=== PATIENT | female | born 1960 | race Caucasian/White ===

== ENCOUNTER 2016-11-05 13:56 | Emergency (ER) | payer OTHER ==
[2016-11-05 14:54] VITALS: BP 113/72
--- NOTE | 2016-11-05 15:02 | UC ---
Throat Pain/Nasal Guy HPI - HPI Summary HPI Summary: pt c/o sudden onset of sore throat that began this morning. Pt reports that she had the "stomach bug" two weeks ago, now c/o of URI like symptoms X 1 week and now woke this morning with c/o sore throat. She states that her throat has been "feeling funny" for at least 1 week. Pt was newly diagnosed with COPD, is a current everyday smoker and began taking Advair 3 months ago. - History of Current Complaint Chief Complaint: UCRespiratory Stated Complaint: SORE THROAT,SINUS Time Seen by Provider: 11/05/16 14:31 Hx Obtained From: Patient Hx Last Menstrual Period: 2012 ?: No Onset/Duration: Sudden Onset Severity: Moderate Cough: Productive Associated Signs & Symptoms: Positive: Dysphagia, Wheezing, Sinus Discomfort Related History: Smoking - Allergies/Home Medications Allergies/Adverse Reactions: Allergies Allergy/AdvReac Type Severity Reaction Status Date / Time No Known Allergies Allergy Verified 11/05/16 14:33 Home Medications: Home Medications Atorvastatin* [Lipitor*] 40 mg PO DAILY 11/05/16 [History Confirmed 11/05/16] Esomeprazole(NF) [NexIUM(NF)] 40 mg PO DAILY 11/05/16 [History Confirmed ] Fluticasone-Salmeterol 250-50* [Advair Diskus 250-50*] 1 puff INH BID 11/05/16 [ History Confirmed 11/05/16] Levothyroxine TAB* [Synthroid TAB*] 50 mcg PO 11/05/16 [History] Oxycodone TAB(NF) [Oxycodone HCl 10 MG] 10 mg PO Q6H PRN 11/05/16 [History Confirmed 11/05/16] Ranitidine HCl [Zantac 75] 75 mg PO BEDTIME 11/05/16 [History Confirmed 11/05/16 ] PMH/Surg Hx/FS Hx/Imm Hx Previously Healthy: Yes Endocrine History Of: Reports: Thyroid Disease Cardiovascular History Of: Reports: Hypertension Respiratory History Of: Reports: COPD Cancer History Of: Denies: Breast Cancer - Surgical History Surgical History: Yes Surgery Procedure, Year, and Place: Left fibula fracture repair, 2009, [facility]. Finger tendon releases - Family History Known Family History: Positive: Respiratory Disease - mom asthma - Social History Lives: With Family Alcohol Use: Rare Substance Use Type: None, Prescribed Smoking Status (MU): Current Every Day Smoker Type: Cigarettes Amount Used/How Often: 1/2 PPD Length of Time of Smoking/Using Tobacco: 37 +Years Have You Smoked in the Last Year: Yes Household Exposure Type: Cigarettes - Immunization History Most Recent Influenza Vaccination: FALL 2015 Review of Systems Constitutional: Chills Skin: Negative Eyes: Negative ENT: Sore Throat Respiratory: Cough Cardiovascular: Negative Gastrointestinal: Negative Genitourinary: Negative Motor: Negative Neurovascular: Negative Musculoskeletal: Negative Neurological: Headache Psychological: Negative All Other Systems Reviewed And Are Negative: Yes Physical Exam Triage Information Reviewed: Yes Appearance: Ill-Appearing Vital Signs: Initial Vital Signs Temp 97.6 F 11/05/16 14:39 Resp 18 11/05/16 14:39 BP 113/72 11/05/16 14:39 Pulse Ox 100 11/05/16 14:39 Vital Signs Reviewed: Yes ENT Exam: Other ENT: Positive: Nasal congestion, Other: - maxillary sinus tenderness, cerumen in bilateral ears, with patches soft palate Neck exam: Normal Neck: Positive: Supple Respiratory Exam: Other Respiratory: Positive: Wheezing Cardiovascular Exam: Normal Musculoskeletal Exam: Normal Neurological Exam: Normal Psychological Exam: Normal Skin Exam: Other - oral: soft palate white patch Throat Pain/Nasal Course/Dx - Course Course Of Treatment: pt had negative rapid strep test. Pt reports she hasnot been rinsing her mouth after using her advair. I told her that good oral hygien is needed with use of Advair and to follow up with her PCP or return to clinic. - Differential Dx/Diagnosis Differential Diagnosis/HQI/PQRI: Pharyngitis, URI Provider Diagnoses: URI. Oral candidiasis Discharge - Discharge Plan Condition: Stable Disposition: HOME Prescriptions: Fluconazole 100 MG TAB* [Diflucan 100 MG TAB*] 100 mg PO DAILY #7 tab Patient Education Materials: Oral Candidiasis (ED), Upper Respiratory Infection (ED) Referrals: Alison Lopez PA [Physician Senior Structural Engineer] - Additional Instructions: Please follow up with your PCP as soon as possible. If your symptoms change, worsen or do not improve please seek care from your PCP, return to clinic or go to the closest ED.
== END 2016-11-05 15:19 | disposition home or self-care (01) ==
LOC: UCCORT 13:56
DX: J06.9 Acute upper respiratory infection, unspecified (principal); B37.0 Candidal stomatitis; E07.9 Disorder of thyroid, unspecified; I10 Essential (primary) hypertension; J44.9 Chronic obstructive pulmonary disease, unspecified; F17.210 Nicotine dependence, cigarettes, uncomplicated
CPT/HCPCS: 87651; 99212; G0463

== ENCOUNTER 2017-07-16 13:09 | Emergency (ER) | payer OTHER ==
[2017-07-16 14:13] VITALS: BP 105/70
--- NOTE | 2017-07-16 14:34 | UC ---
Knee Pain HPI - HPI Summary HPI Summary: Pt c/o gradual onset of right knee pain. Denies injury or trauma. Pt reports pain began 4 days after cleaning her house. Pt is under DR. Alvarenga for pain management for back pain. - History of Current Complaint Chief Complaint: UCLowerExtremity Stated Complaint: RIGHT KNEE COMPLAINT Time Seen by Provider: 07/16/17 14:22 Hx Obtained From: Patient Hx Last Menstrual Period: 2012 ?: No Onset/Duration: Gradual Onset, Lasting Days Severity Initially: Mild Severity Currently: Moderate Character: Dull, Aching Aggravating Factor(s): Movement, Weight Bearing, Prolonged Standing, Stairs Alleviating Factor(s): Rest, Position Associated Signs And Symptoms: Positive: Negative Able to Bear Weight: Yes - minimal - Risk Factors Gout Risk Factor: Age ^ 41, Obesity - Allergies/Home Medications Allergies/Adverse Reactions: Allergies Allergy/AdvReac Type Severity Reaction Status Date / Time Gabapentin AdvReac Intermediate Altered Verified 07/16/17 14:14 Mental Status Tramadol AdvReac Intermediate See Comment Verified 07/16/17 14:14 PMH/Surg Hx/FS Hx/Imm Hx Previously Healthy: Yes - Surgical History Surgical History: Yes Surgery Procedure, Year, and Place: Left fibula fracture repair, 2009, [facility]. R 3rd finger and L thumb trigger finger release - Family History Known Family History: Positive: Respiratory Disease - mom asthma - Social History Occupation: Employed Full-time Lives: With Family Alcohol Use: Occasionally Substance Use Type: None, Prescribed Substance Use Comment - Amount & Last Used: takes oxycodone for chronic back Smoking Status (MU): Heavy Every Day Tobacco Smoker Type: Cigarettes Amount Used/How Often: 1/2 PPD Length of Time of Smoking/Using Tobacco: 37 +Years Have You Smoked in the Last Year: Yes Household Exposure Type: Cigarettes - Immunization History Most Recent Influenza Vaccination: FALL 2015 Review of Systems Constitutional: Negative Skin: Negative Eyes: Negative ENT: Negative Respiratory: Negative Cardiovascular: Negative Gastrointestinal: Negative Genitourinary: Negative Motor: Decreased ROM - right knee secondary to pain Neurovascular: Negative Musculoskeletal: Arthralgia - right knee, Myalgia - right knee Neurological: Negative Psychological: Negative Is Patient Immunocompromised?: No All Other Systems Reviewed And Are Negative: Yes Physical Exam Triage Information Reviewed: Yes Appearance: Well-Appearing Vital Signs: Initial Vital Signs Temp 97.8 F 07/16/17 14:02 Pulse 78 07/16/17 14:02 Resp 16 07/16/17 14:02 BP 105/70 07/16/17 14:02 Pulse Ox 99 07/16/17 14:02 Vital Signs Reviewed: Yes Eye Exam: Normal ENT Exam: Normal Neck exam: Normal Respiratory Exam: Normal Musculoskeletal: Positive: No Edema, ROM Limited @ - right knee secondary to pain, Other: - medial aspectright knee at joint Neurological Exam: Normal Psychological Exam: Normal Skin Exam: Normal Knee Pain Course/Dx - Differential Dx/Diagnosis Differential Diagnosis/HQI/PQRI: Bursitis, Sprain, Strain Provider Diagnoses: right knee bursitis. right knee over use Discharge - Discharge Plan Condition: Stable Disposition: HOME Patient Education Materials: Knee Pain (ED), RICE Therapy (ED) Referrals: Gilson Coelho MD [Medical Doctor] - Xin Ridley MD [Primary Care Provider] - If Needed
== END 2017-07-16 14:49 | disposition home or self-care (01) ==
LOC: UCCORT 13:09
DX: M70.51 Other bursitis of knee, right knee (principal); M70.861 Other soft tissue disorders related to use, overuse and pressure, right lower leg; Y93.9 Activity, unspecified; Z88.5 Allergy status to narcotic agent; F17.210 Nicotine dependence, cigarettes, uncomplicated
CPT/HCPCS: 99212; G0463

== ENCOUNTER 2017-10-30 07:42 | Day surgery (SDC) | payer OTHER ==
[~2017-10-30 07:42] MED LIST: Buffered Lidocaine 0.9% SYRIN* 5 ML/SYR SYRINGE INTRADERM ONE; Dexamethasone IV* 4 MG/ML 1 ML (4 MG) IV SLOW PU ONE; Levalbuterol 0.63MG/3ML NEB* UNIT OF USE INH ONE
[2017-10-30] MEDS ORDERED: ceFAZolin 2 GM in 100 MLS NS (*) BAG IVPB ONE (08:19)
[2017-10-30] MEDS ORDERED: Levalbuterol 0.63MG/3ML NEB* UNIT OF USE INH ONE (08:19)
[2017-10-30] MEDS ORDERED: Dexamethasone IV* 4 MG/ML 1 ML (4 MG) ONE (08:19)
[2017-10-30] MEDS ORDERED: Famotidine IV* 10 MG/ML 2 ML (20 mg) IV SLOW PU ONE (08:40)
[2017-10-30] MEDS ORDERED: Famotidine IV* 10 MG/ML 2 ML (20 mg) ONE (08:53)
[2017-10-30] MEDS ORDERED: Lidocaine 1% MPF wEPI 200,000* 30 ML SDV ONE (09:24)
[2017-10-30] MEDS ORDERED: Bupivacaine 0.25% SDV* 30 ML ONE (09:24)
[2017-10-30] MEDS ORDERED: Propofol* 10 MG/ML 20 ML BTL IV PUSH ONE (09:33)
[2017-10-30] MEDS ORDERED: Midazolam* 1 MG/ML 5 ML VIAL (5 MG) ONE (09:33)
[2017-10-30] MEDS ORDERED: Ketorolac INJ* 30 MG/ML 1 ML VIAL ONE (09:33)
[2017-10-30] MEDS ORDERED: fentaNYL* 50 MCG/ML 2 ML VIAL (100 MCG VIAL) ONE (09:33)
[2017-10-30] MEDS ORDERED: Ondansetron INJ* 2 MG/ML VIAL ONE (09:33)
[2017-10-30] MEDS ORDERED: Chloroprocaine 2%* 20 ML VIAL ONE (09:37)
[2017-10-30] MEDS ORDERED: Naloxone* 0.4 MG/ML 1 ML VIAL IV PRN (10:06)
[2017-10-30] MEDS ORDERED: oxyCODONE/Acetamin 5/325 MG* TAB PO PRN (10:06)
[2017-10-30] MEDS ORDERED: DiMENhydriNATE IV* 50 MG/ML VIAL IV PUSH PRN (10:06)
[2017-10-30] MEDS ORDERED: Ondansetron INJ* 2 MG/ML VIAL IV PRN (10:06)
[2017-10-30] MEDS ORDERED: fentaNYL* 50 MCG/ML 2 ML VIAL (100 MCG VIAL) IV PRN (10:06)
[2017-10-30 11:34] VITALS: BP 127/72
--- NOTE | 2017-10-31 20:20 | OP ---
OPERATIVE REPORT: DATE OF OPERATION: 10/30/17. DATE OF : 62 SURGEON: Felicaino Aguilera MD. RUSSIAN HISTORY PROFESSOR: GREG Alvarenga Operating Systems Programmer was needed for the entirety of the case with positioning, retraction and was utilized throu ghout all portions of the case. ANESTHESIOLOGIST: Dr. Mari. ANESTHESIA: Spinal. PRE-OP DIAGNOSIS: Right knee medial meniscus tear with mild osteoarthritis. POST-OP DIAGNOSES: Right knee medial and lateral meniscus tears and chondrosis of the patellofemoral and medial compartment. OPERATIVE PROCEDURE: Right knee arthroscopy with chondroplasty of the medial femoral condyle and pat rosa as well as partial medial and partial lateral meniscectomy. COMPLICATIONS: None. ESTIMATED BLOOD LOSS: Minimal. INDICATIONS: Arely Gaviria is a 57-year-old female who sustained an injury several months ago to her knee. She has failed conservative management. She was diagnosed with an acute medial meniscu s tear. She failed injections as well as physical therapy. She has persistent pain with daily sympt oms of catching and locking. Risks and benefits of surgery were discussed at length to include but n ot limited to bleeding, infection, damage to nerves, vessels, surrounding structures, would nonhealin g, persistent pain, need for further surgery, scarring, stiffness, incomplete relief of symptoms, ris k of anesthesia, risk of arthritis, worsening symptoms. DESCRIPTION OF PROCEDURE: The patient was greeted in the preoperative area by the attending surgeon. Correct extremity was marked and consent confirmed. The patient was brought back to the operating suite, where she was placed in the supine position on the operating table. She then sat up and under went a spinal anesthesia after which she was then appropriately positioned on the bed, lateral post w as positioned. Nonsterile tourniquet was placed high on the proximal thigh. T he right leg was then prepped and draped in the usual sterile fashion beginning with chlorhexidine soap, scrub, and alcoho l wipe, and a final prep with ChloraPrep. After appropriate surgical pause indicating side, site, procedure, and administration of antibiotics, the knee was intra-articularly injected with 1% lidocaine with epi. The anterolateral portals were made sharply with #11 blade. The scope was introduced into the joint and the joint was examined. The scope was brought into the patellofemoral compartment which had evidence of grade 2 changes to the p atella with unstable flaps. The trochlea had areas of grade 2 and 3 changes. The medial and lateral gutters were intact. The scope was brought into the notch. The ACL and PCL were intact. The medial compartment was examined. There were grade 2 changes to the medial femoral condyle with unstable fla ps. The tibial plateau had grade 2 changes. The medial meniscus had an unstable radial split tear w ith a parrot-beak flap associated with this, which was then debrided back using biters and yris al l the way to the level of the root and laterally. The shaver was also used to debride this back. Sha sunil was also used to do a chondroplasty in the medial femoral condyle. Once the partial meniscectomy was completed, attention was directed to the lateral compartment. The lateral compartment had grade 0 to 1 changes. The lateral meniscus had unstable fraying at the root as well as at the body. The shaver was used to debride this back using the biters and yris. Once the partial meniscectomies w ere complete, the knee was placed in extension and a small chondroplasty of the patella was done usin g the shaver to remove any unstable flaps. The joint was thoroughly lavaged and I removed the loose debris. The wounds were copiously irrigated with sterile saline. The portals were closed with 3-0 nylon. The knee intra-articularly injected with 0.25% Marcaine plain. Sterile dressings were applie d as well as the Cryo/Cuff. The patient was awoken from anesthesia, transferred to the PACU in stabl e condition. POSTOPERATIVE PLAN: She will be weightbearing as tolerated. She will start range of motion. She wi ll be on crutches for 3 to 5 days. DVT prophylaxis considered, but deferred due to no previous perso nal or family history. I will see the patient back in 10 to 14 days. [id number]/[facility] #: [id number]
== END 2017-10-30 11:50 | disposition home or self-care (01) ==
LOC: OREAST 07:42
PROVIDERS: ATTEND Orthopaedic Surgery
DX: S83.241A Other tear of medial meniscus, current injury, right knee, initial encounter (principal); S83.281A Other tear of lateral meniscus, current injury, right knee, initial encounter; M93.961 Osteochondropathy, unspecified, right lower leg; X58.XXXA Exposure to other specified factors, initial encounter; Y92.9 Unspecified place or not applicable; F17.210 Nicotine dependence, cigarettes, uncomplicated; I10 Essential (primary) hypertension; J44.9 Chronic obstructive pulmonary disease, unspecified; E03.9 Hypothyroidism, unspecified; K21.9 Gastro-esophageal reflux disease without esophagitis
CPT/HCPCS: J1100; J1885; J2001; J2250; J2400; J2405; J2704; J3010; J7614

== ENCOUNTER 2018-02-09 09:26 | Day surgery (SDC) | payer OTHER ==
--- NOTE | 2018-02-07 21:28 | HP ---
PREOPERATIVE HISTORY AND PHYSICAL: DATE OF ADMISSION/SURGERY: 02/09/18 DATE OF OFFICE VISIT/ENCOUNTER: 02/07/18 ATTENDING SURGEON: Sherry Duque MD * (DICTATED BY GREG KINGSLEY) PROCEDURE: Left wrist open reduction and internal fixation. CHIEF COMPLAINT: Left wrist fracture. HISTORY OF PRESENT ILLNESS: This is a 57-year-old female, who sustained injury to her left wrist on 02/05/18. She was in [place] at that time and was gathering wood. She was trying to break a piece of wood with one of her feet when she slipped and fell on an outstretched left hand. She was seen at the emergency room in [place] where x-rays showed a comminuted distal radius intraarticular fracture. There was no reduction performed. The patient was placed in a posterior splint and referred to Dr. Duque for further evaluation and treatment considerations. She is reporting significant pain, but she denies any numbness or tingling. She denies other injury. This is her nondominant hand. The patient is seen in the pain management clinic by Dr. Alvarenga for chronic back pain and is on oxycodone HCl 10 mg regularly. PAST MEDICAL HISTORY: 1. Hypertension. 2. High cholesterol. 3. Arthritis. 4. Diverticulitis. 5. GERD. 6. Hypothyroid. 7. Depression and anxiety. PAST SURGICAL HISTORY: 1. Surgery for a left leg fracture approximately 6 years ago. 2. Left thumb surgery. 3. Right middle finger surgery. 4. Uterine ablation. 5. Right knee arthroscopy. CURRENT MEDICATIONS: 1. Amlodipine besylate 5 mg daily. 2. Atorvastatin calcium 40 mg daily. 3. Clonidine HCl 0.1 mg twice a day. 4. Esomeprazole magnesium 40 mg daily. 5. Fluticasone propionate 50 mcg/ACT 1 spray to each nostril daily. 6. Ketorolac tromethamine 10 mg daily. 7. Lisinopril 40 mg daily. 8. Levothyroxine sodium. 9. Magnesium with vitamin D. 10. Meloxicam 15 mg daily. 11. Multivitamin. 12. Oxycodone HCl 10 mg q.4 hours p.r.n. 13. Paroxetine HCl 20 mg daily. 14. Pravastatin sodium 40 mg daily. 15. Acid floor inspector maximum strength 150 mg daily. 16. Yuvafem 10 mcg. ALLERGIES: TRAMADOL and GABAPENTIN. FAMILY MEDICAL HISTORY: Heart disease, hypertension, lung cancer, cardiac disease, asthma. 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 She is a current smoker. She smokes approximately half-a-pack to a pack-a-day and has done so for the past 30 years. She denies recreational drug use. She does drink alcohol on regular occasion. REVIEW OF SYSTEMS: General: Negative for fevers, chills, night sweats, unexplained weight loss/gain. No known anesthesia problems. HEENT: Negative for headache, lightheadedness, syncopal episodes, visual changes. Integumentary : Negative for abrasions, lesions, or open wounds. Cardiothoracic: Negative for hypertension, chest pain, palpitations, edema. Respiratory: Negative for shortness of breath with exertion, chronic cough, wheezing. GI: Negative for nausea, vomiting, diarrhea, constipation, GERD. : Negative for nocturia, urinary frequency, urgency, history of UTIs, or kidney problems. Musculoskeletal: Positive for current complaint. Positive for chronic back pain. Neurological: Negative for paresthesias, numbness, history of seizure, or stroke. Positive for anxiety/depression. Endocrine: Negative for diabetes. Positive for hypothyroid issues. Hematologic: Negative for easy bruising, anemia, bleeding disorders, history of DVT. Infectious Disease: Negative for history of MRSA, hepatitis C, HIV. PHYSICAL EXAMINATION GENERAL: Well-developed, well-nourished 57-year-old female in no acute distress. VITAL SIGNS: Height 5 feet 6-1/4 inches, weight 185 pounds. Pulse rate 76, blood pressure 128/76. HEENT: Normocephalic, atraumatic. Pupils are equal, round, and reactive to light and accommodation. Extraocular movements are intact. Throat is clear. NECK: Supple. No palpable lymph nodes. PULMONARY: Lungs are clear to auscultation bilaterally. No wheezes, rales, or rhonchi. CARDIOVASCULAR: Regular rate and rhythm. S1, S2. No murmurs, rubs, or gallops. No edema. ABDOMEN: Positive bowel sounds. Soft, nontender. NEUROLOGICAL: Alert and oriented x3. Cranial nerves II through XII are intact. Sensation is intact to light touch. MUSCULOSKELETAL: On exam of her left upper extremity, she has swelling present at the dorsum of her hand and down into her fingers. She had 2 rings on her ring finger that were cut off in the office. There is obvious deformity of the distal radius and tenderness to palpation there. Neurovascular function is intact. The patient does have active motion of her fingers, but limited secondary to swelling. SKIN: Intact. IMAGING STUDIES: X-rays AP, lateral and oblique of the left wrist show a comminuted intraarticular fracture of the left distal radius. IMPRESSION: Left distal radius fracture. PLAN: The patient is scheduled to undergo a left wrist open reduction and internal fixation with Dr. Duque on 02/09/18. She will return to the office 10 days postop for followup and suture removal. The patient was prescribed Percocet for postoperative pain management. She will be responsible for contacting her pain management physician to inform him that she will be filling this prescription, after which pain management will be returned to Dr. Alvarenga. GREG KINGSLEY [id number]/[facility] #: [id number] BAO
[~2018-02-09 09:26] MED LIST changes: +Bupivacaine 0.5% SDV PF* 30ML VIAL ONE; -Levalbuterol 0.63MG/3ML NEB* UNIT OF USE INH ONE; +Ondansetron INJ* 2 MG/ML VIAL IV ONE; +Sodium Citrate/Citric Acid* 15 ML UDC PO ONE
[2018-02-09] MEDS ORDERED: ceFAZolin 2 GM PREMIX (*) 2 GM/50 ML BAG IVPB ONE (10:02)
[2018-02-09] MEDS ORDERED: Sodium Citrate/Citric Acid* 15 ML UDC ONE (10:02)
[2018-02-09] MEDS ORDERED: Dexamethasone IV* 4 MG/ML 1 ML (4 MG) ONE (10:02)
[2018-02-09] MEDS ORDERED: Ondansetron 40 MG VIAL* 2 MG/ML 20 ML VIAL ONE (10:02)
[2018-02-09] MEDS ORDERED: Propofol* 10 MG/ML 20 ML BTL IV PUSH ONE ×3 (10:10→11:56)
[2018-02-09] MEDS ORDERED: Midazolam* 1 MG/ML 2 ML VIAL (2 MG) ONE (10:10)
[2018-02-09] MEDS ORDERED: fentaNYL* 50 MCG/ML 2 ML VIAL (100 MCG VIAL) ONE ×2 (10:10→11:44)
[2018-02-09] MEDS ORDERED: Lidocaine 2% MPF* 2 ML VIAL ONE (10:10)
[2018-02-09] MEDS ORDERED: Acetaminophen TAB* 325 MG PO PRN (10:45)
[2018-02-09] MEDS ORDERED: oxyCODONE TAB* 5 MG TAB PO PRN (10:45)
[2018-02-09] MEDS ORDERED: Levalbuterol 0.63MG/3ML NEB* UNIT OF USE INH PRN (10:45)
[2018-02-09] MEDS ORDERED: HYDROmorphone INJ* 1 MG/ML CARPUJECT SYRINGE IV PRN (10:45)
[2018-02-09] MEDS ORDERED: Naloxone* 0.4 MG/ML 1 ML VIAL IV PRN (10:45)
[2018-02-09] MEDS ORDERED: PROCHLORPERAZINE INJ 5 MG/ML 2 ML VIAL IV PRN (10:45)
[2018-02-09] MEDS ORDERED: fentaNYL* 50 MCG/ML 2 ML VIAL (100 MCG VIAL) IV PRN (10:45)
[2018-02-09] MEDS ORDERED: oxyCODONE/Acetamin 5/325 MG* TAB PO PRN (10:45)
[2018-02-09] MEDS ORDERED: Ketorolac INJ* 30 MG/ML 1 ML VIAL ONE (11:27)
[2018-02-09] MEDS ORDERED: HYDROmorphone INJ* 1 MG/ML CARPUJECT SYRINGE ONE (11:31)
[2018-02-09] MEDS ORDERED: Esmolol* 10 MG/ML 10 ML (100 mg) ONE (11:56)
[2018-02-09] MEDS ORDERED: Acetaminophen IV 1GM/100ML * 100 ML ONE (12:18)
[2018-02-09] MEDS ORDERED: oxyCODONE ORAL.SOLN* 5 MG/5 ML UDC ONE (12:46)
[2018-02-09 13:13] VITALS: BP 127/81
--- NOTE | 2018-02-09 14:32 | RAD ---
INDICATION: ORIF traumatic radial fracture left wrist COMPARISON: February 05, 2018 FINDINGS: 42 seconds of fluoroscopy were provided for the orthopedics department. Fluoroscopic spot imaging of the left wrist were obtained for operative control and show ORIF of the distal radial fracture. The fracture fragments are in satisfactory position . CPT II Codes: G9500 (fluoro time doc)
--- NOTE | 2018-02-09 15:17 | OP ---
CC: Sherry Duque MD OPERATIVE REPORT: ADDENDUM: The yard assistant, Nena Nguyễn, was present through the entirety of the case and her assistance was essential for safe completion of the case for retraction of the neurovascular structures. [id number]/[facility] #: [id number] MTDD
--- NOTE | 2018-02-10 03:01 | OP ---
CC: Dr. Duque OPERATIVE REPORT: DATE OF OPERATION: 02/09/18 DATE OF : 62 SURGEON: Sherry Duque MD HEATING ELEMENT WINDER: GREG Alvarenga ANESTHESIA: General. PRE-OP DIAGNOSIS: Comminuted intraarticular fracture of the left distal radius. POST-OP DIAGNOSIS: Comminuted intraarticular fracture of the left distal radius. OPERATIVE PROCEDURE: Open reduction internal fixation of the left distal radius. ESTIMATED BLOOD LOSS: 0. TOURNIQUET TIME: 30 minutes. INDICATIONS: Arely is a 57-year-old woman who fell and injured her left wrist. She was seen at a hospital in [place]. The fracture was not reduced. She presents now for ORIF of the left dista l radius. DESCRIPTION OF PROCEDURE: The patient was brought to the operating room and was given a general anes thetic and placed in the supine position on the operating table with a tourniquet around her left upp er arm. Skin of her left upper extremity was prepped and draped in the usual sterile fashion. The h and and forearm were exsanguinated and the tourniquet elevated to 250 mmHg. A longitudinal incision was made on the volar radial aspect of the wrist and we dissected sharply through the subcutaneous ti ssue down to the FCR tendon. The superficial and deep portion of the FCR tendon sheath was incised l ongitudinally and then the FPL muscle was retracted ulnarly. The pronator quadratus was incised and subperiosteally dissected off of the distal radius. With traction, manipulation of the fracture frag ments were realigned. There were several intraarticular fracture fragments. These were secured with a Synthes distal radius variable angle plate with 3 separate fragments secured with distal screws in the intraarticular segment. Three proximal screws were placed in the shaft of the radius. The posit ion of the hardware and fracture fragment was checked on the C-arm in the AP and lateral views and fo und to be satisfactory. Wound was irrigated and the pronator quadratus was repaired over the plate. The FCR tendon sheath was repaired with 2-0 Vicryl suture and the skin edges were reapproximated wit h 4-0 nylon suture. The wound was dressed with Xeroform, 4x4, Webril and a volar splint. The patien t tolerated the procedure well and was brought to the recovery room in good condition. [id number]/[facility] #: [id number]
== END 2018-02-09 13:20 | disposition home or self-care (01) ==
LOC: OREAST 09:26
PROVIDERS: ATTEND Orthopaedic Surgery
DX: S52.572A Other intraarticular fracture of lower end of left radius, initial encounter for closed fracture (principal); I10 Essential (primary) hypertension; E78.00 Pure hypercholesterolemia, unspecified; K21.9 Gastro-esophageal reflux disease without esophagitis; E03.9 Hypothyroidism, unspecified; F17.210 Nicotine dependence, cigarettes, uncomplicated; Z88.8 Allergy status to other drugs, medicaments and biological substances; X58.XXXA Exposure to other specified factors, initial encounter
CPT/HCPCS: 76000; A9270-GY; C1713; C1776; J0690; J1100; J1170; J1885; J2250; J2405; J2704; J3010

== ENCOUNTER 2018-10-23 13:41 | Emergency (ER) | payer OTHER ==
--- OUTSIDE RECORDS SUMMARY | 2018-10-23 15:01 | XMS REPORT | Continuity of Care Document ---
:1960 External Reference #:[id number] Author Name Jaime Alvarenga DO MPH Address [address] [place] [address], [address] [place] [address] Care Team Providers Name Role Phone Xin Ridley M.D. Care Team Information Caregivers Homecare Unavailable Xin Ridley M.D. Primary Care Physician Unavailable Payers Date Identification Numbers Payment Provider Subscriber Policy Number: [id number] [facility] Arely Gaviria PayID: [id number] 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 Working Cigarette Use Current Cigarette Smoker 1 Pack Daily ETOH Use Occasionally consumes beer Tobacco Use Start: Unknown Patient is a current smoker, smokes every day Smoking Status Reviewed: 10/02/18 Patient is a current smoker, smokes every day Allergies, Adverse Reactions, Alerts Date Description Reaction Status Severity Comments 05/24/2016 Tramadol Active 05/24/2016 Gabapentin Confusion Active 05/24/2016 Bupropion suicidal thoughts Active 05/24/2016 Nortriptyline nightmares Active Medications Medication Date Status Form Strength Qnty SIG Indications Ordering Provider Cyclobenzaprine 10/04/ Active Tablets 10mg 30tab si by MIN Alvarenga 2016 s mouth Jaime, daily DO, MPH Oxycodone HCL 07/18/ Active Tablets 10mg 180ta si-2 Kevin Alvarenga bs by mouth Jaime, every 6 DO, MPH to 8 hours as directed chronic pain patient Meloxicam / Active Tablets 15mg si by Unknown 0000 mouth every day as needed Clonidine HCL / Active Tablets 0.1mg 1 by Unknown 0000 mouth twice daily Aspirin Adult Low / Active Tablets DR 81mg 1 by Unknown Strength 0000 mouth daily Womens 50+ Multi / Active Tablets 1 by Unknown Vitamin & Mineral 0000 mouth Formula daily Paroxetine HCL / Active Tablets 20mg 1 by Unknown 0000 mouth daily Amlodipine / Active Tablets 5mg 1 by Unknown Besylate 0000 mouth daily Fluticasone / Active Suspension 50mcg/Act 1 spray Unknown Propionate 0000 each nostril daily Atorvastatin / Active Tablets 40mg Qpm Unknown Calcium 0000 Nexium / Active Capsules DR 40mg si by Unknown 0000 mouth twice a day as directed Ranitidine 150 / Active Tablets 150mg Unknown Maximum Strength 0000 Morphine Sulfate 05/24/ Hx Tablets ER 15mg 60tab si by ANNE-MARIE Alvarenga 2016 - s mouth Jaime, 07/18/ every 12 DO, MPH 2016 hours as directed chronic pain patient Oxycodone HCL 05/24/ Hx Tablets 10mg 90tab si by Lyle 2016 - s mouth Jaime, 07/18/ every 8 DO, MPH 2016 hours as directed chronic pain patient ` / Hx Tablets 40mg 1 by Unknown 0000 - mouth 2017 Pravastatin / Hx Tablets 20mg 1 by Unknown Sodium 0000 - mouth 2017 Omeprazole / Hx Capsules DR 40mg 1 by Unknown 0000 - mouth 2017 Synthroid / Hx Tablets 25mcg daily Unknown 0000 - 2017 Advair Diskus / Hx Aerosol 250-50mcg 1 puffs Unknown 0000 - /Dose twice a 2018 Levothyroxine / Hx Tablets 25mcg 1 by Unknown Sodium 0000 - mouth 09/12/ every day 2018 Immunizations Description No Information Available Vital Signs Date Vital Result Comment 10/02/2018 11:42am BP Systolic 128 mmHg BP Diastolic 72 mmHg Heart Rate 70 /min Respiratory Rate 10 /min Height 66 inches 5'6" Weight 188.00 lb Pain Level 5 Pain at this time. Pain Level With Medicine 4 on average with meds Pain Level Without Medicine 10 10/ without meds BMI (Body Mass Index) 30.3 kg/m2 09/04/2018 10:42am BP Systolic 122 mmHg BP Diastolic 74 mmHg Heart Rate 78 /min Respiratory Rate 20 /min Height 66 inches 5'6" Weight 184.00 lb Pain Level 7 Pain at this time. Pain Level With Medicine 6 on average with meds Pain Level Without Medicine 10 06/06 without meds BMI (Body Mass Index) 29.7 kg/m2 08/06/2018 10:21am BP Systolic 134 mmHg BP Diastolic 88 mmHg Heart Rate 78 /min Respiratory Rate 20 /min Height 66 inches 5'6" Weight 180.00 lb Pain Level 7 Pain at this time. Pain Level With Medicine 7 on average with meds Pain Level Without Medicine 10 06/06 without meds BMI (Body Mass Index) 29.0 kg/m2 07/10/2018 10:19am BP Systolic 132 mmHg BP Diastolic 80 mmHg Heart Rate 78 /min Respiratory Rate 20 /min Height 66 inches 5'6" Weight 180.00 lb Pain Level 7 Pain at this time. Pain Level With Medicine 6 on average with meds Pain Level Without Medicine 10 06/06 without meds BMI (Body Mass Index) 29.0 kg/m2 06/12/2018 11:23am BP Systolic 126 mmHg BP Diastolic 80 mmHg Heart Rate 84 /min Respiratory Rate 20 /min Height 66 inches 5'6" Weight 179.00 lb Pain Level 6 Pain at this time. Pain Level With Medicine 5 on average with meds Pain Level Without Medicine 06/06 without meds Pain Level After Procedure 4 BP Systolic Recheck 130 mmHg Pulse: 88 BP Diastolic Recheck 80 mmHg Pulse: 88 BMI (Body Mass Index) 28.9 kg/m2 05/08/2018 11:37am BP Systolic 126 mmHg BP Diastolic 86 mmHg Heart Rate 84 /min Respiratory Rate 20 /min Height 66 inches 5'6" Weight 180.00 lb Pain Level 5 Pain at this time. Pain Level With Medicine 4 on average with meds Pain Level Without Medicine 10 06/06 without meds Pain Level After Procedure 4 BP Systolic Recheck 120 mmHg Pulse:80 BP Diastolic Recheck 82 mmHg Pulse:80 BMI (Body Mass Index) 29.0 kg/m2 04/10/2018 11:38am BP Systolic 148 mmHg BP Diastolic 88 mmHg Heart Rate 92 /min Respiratory Rate 20 /min Height 66 inches 5'6" Weight 182.00 lb Pain Level 9 Pain at this time. Pain Level With Medicine 7 on average with meds Pain Level Without Medicine 10 06/06 without meds BMI (Body Mass Index) 29.4 kg/m2 03/13/2018 10:35am BP Systolic 136 mmHg BP Diastolic 82 mmHg Heart Rate 88 /min Respiratory Rate 20 /min Height 66 inches 5'6" Weight 182.00 lb Pain Level 7 Pain at this time. Pain Level With Medicine 7 on average with meds Pain Level Without Medicine 10 06/06 without meds BMI (Body Mass Index) 29.4 kg/m2 02/12/2018 11:18am BP Systolic 132 mmHg BP Diastolic 84 mmHg Heart Rate 80 /min Respiratory Rate 20 /min Height 66 inches 5'6" Weight 184.00 lb Pain Level 8 Pain at this time. Pain Level With Medicine 7 on average with meds Pain Level Without Medicine 10 06/06 without meds BMI (Body Mass Index) 29.7 kg/m2 01/15/2018 11:43am BP Systolic 128 mmHg BP Diastolic 76 mmHg Heart Rate 74 /min Respiratory Rate 20 /min Height 66 inches 5'6" Weight 184.00 lb Pain Level 6 Pain at this time. Pain Level With Medicine 6 on average with meds Pain Level Without Medicine 06/06 without meds BMI (Body Mass Index) 29.7 kg/m2 12/12/2017 10:59am BP Systolic 122 mmHg BP Diastolic 76 mmHg Heart Rate 74 /min Respiratory Rate 20 /min Height 66 inches 5'6" Weight 191.00 lb Pain Level 6 Pain at this time. Pain Level With Medicine 5 on average with meds Pain Level Without Medicine 06/06 without meds BMI (Body Mass Index) 30.8 kg/m2 11/14/2017 11:35am BP Systolic 130 mmHg BP Diastolic 84 mmHg Heart Rate 82 /min Respiratory Rate 20 /min Height 66 inches 5'6" Weight 185.00 lb Pain Level 7 Pain at this time. Pain Level With Medicine 6 on average with meds Pain Level Without Medicine 10 06/06 without meds BMI (Body Mass Index) 29.9 kg/m2 10/16/2017 10:09am BP Systolic 130 mmHg BP Diastolic 78 mmHg Heart Rate 76 /min Respiratory Rate 20 /min Height 66 inches 5'6" Weight 192.00 lb Pain Level 7 Pain at this time. Pain Level With Medicine 6 on average with meds Pain Level Without Medicine 10 06/06 without meds BMI (Body Mass Index) 31.0 kg/m2 09/12/2017 3:07pm BP Systolic 128 mmHg BP Diastolic 86 mmHg Heart Rate 84 /min Respiratory Rate 20 /min Height 66 inches 5'6" Weight 184.00 lb Pain Level 6 Pain at this time. Pain Level With Medicine 5 on average with meds Pain Level Without Medicine 10 06/06 without meds BMI (Body Mass Index) 29.7 kg/m2 2017 11:31am BP Systolic 126 mmHg BP Diastolic 78 mmHg Heart Rate 74 /min Respiratory Rate 20 /min Height 66 inches 5'6" Weight 182.00 lb Pain Level 7 Pain at this time. Pain Level With Medicine 6 on average with meds Pain Level Without Medicine 10 06/06 without meds BMI (Body Mass Index) 29.4 kg/m2 07/18/2017 10:50am BP Systolic 130 mmHg BP Diastolic 82 mmHg Heart Rate 84 /min Respiratory Rate 20 /min Height 66 inches 5'6" Weight 182.00 lb Pain Level 7 Pain at this time. Pain Level With Medicine 6 on average with meds Pain Level Without Medicine 10 06/06 without meds BMI (Body Mass Index) 29.4 kg/m2 06/19/2017 11:10am BP Systolic 126 mmHg BP Diastolic 80 mmHg Heart Rate 78 /min Respiratory Rate 16 /min Height 66 inches 5'6" Weight 182.00 lb Pain Level 5 5/10, Pain at this time. Pain Level With Medicine 5 5/10, on average with meds Pain Level Without Medicine 10 06/06 without meds BMI (Body Mass Index) 29.4 kg/m2 05/16/2017 10:34am BP Systolic 124 mmHg BP Diastolic 72 mmHg Heart Rate 72 /min Respiratory Rate 16 /min Height 66 inches 5'6" Weight 178.00 lb Pain Level 6 6/10, Pain at this time. Pain Level With Medicine 6 6/10, on average with meds Pain Level Without Medicine 10 06/06 without meds BMI (Body Mass Index) 28.7 kg/m2 04/18/2017 10:28am BP Systolic 118 mmHg BP Diastolic 72 mmHg Heart Rate 70 /min Respiratory Rate 16 /min Height 66 inches 5'6" Weight 180.00 lb Pain Level 6 6/10, Pain at this time. Pain Level With Medicine 4 4/10, on average with meds Pain Level Without Medicine 10 10 without meds BMI (Body Mass Index) 29.0 kg/m2 03/21/2017 10:17am BP Systolic 142 mmHg BP Diastolic 86 mmHg Heart Rate 84 /min Respiratory Rate 20 /min Height 66 inches 5'6" Weight 176.00 lb Pain Level 6 Pain at this time. Pain Level With Medicine 5 on average with meds Pain Level Without Medicine 10 06/06 without meds Pain Level After Procedure 5 BP Systolic Recheck 138 mmHg Pulse: 112 BP Diastolic Recheck 80 mmHg Pulse: 112 BMI (Body Mass Index) 28.4 kg/m2 02/20/2017 11:08am BP Systolic 126 mmHg BP Diastolic 74 mmHg Heart Rate 76 /min Respiratory Rate 18 /min Height 66 inches 5'6" Weight 181.00 lb Pain Level 7 Pain at this time. Pain Level With Medicine 6 on average with meds Pain Level Without Medicine 10 06/06 without meds BMI (Body Mass Index) 29.2 kg/m2 01/20/2017 1:54pm BP Systolic 132 mmHg BP Diastolic 84 mmHg Heart Rate 80 /min Respiratory Rate 20 /min Height 66 inches 5'6" Weight 186.00 lb Pain Level 7 Pain at this time. Pain Level With Medicine 7 on average with meds Pain Level Without Medicine 10 06/06 without meds BMI (Body Mass Index) 30.0 kg/m2 12/20/2016 10:53am BP Systolic 124 mmHg BP Diastolic 80 mmHg Heart Rate 76 /min Respiratory Rate 16 /min Height 66 inches 5'6" Weight 186.00 lb Pain Level 7 7/10, Pain at this time. Pain Level With Medicine 4 4/10, on average with meds Pain Level Without Medicine 10 10 without meds BMI (Body Mass Index) 30.0 kg/m2 11/15/2016 10:30am BP Systolic 130 mmHg BP Diastolic 74 mmHg Heart Rate 76 /min Respiratory Rate 18 /min Height 66 inches 5'6" Weight 185.00 lb Pain Level 6 Pain at this time. Pain Level With Medicine 5 on average with meds Pain Level Without Medicine 10 10 without meds BMI (Body Mass Index) 29.9 kg/m2 10/18/2016 11:15am BP Systolic 138 mmHg BP Diastolic 86 mmHg Heart Rate 84 /min Respiratory Rate 20 /min doing well today Height 66 inches 5'6" Weight 185.00 lb Pain Level 6 Pain at this time. Pain Level With Medicine 5 on average with meds Pain Level Without Medicine 10 10 without meds BMI (Body Mass Index) 29.9 kg/m2 10/04/2016 3:00pm BP Systolic 128 mmHg BP Diastolic 82 mmHg Heart Rate 80 /min Respiratory Rate 16 /min Height 66 inches 5'6" Weight 185.00 lb Pain Level 6 6/10, Pain at this time. Pain Level With Medicine 5 5/10, on average with meds Pain Level Without Medicine 10 06/06 without meds BMI (Body Mass Index) 29.9 kg/m2 09/20/2016 10:53am BP Systolic 136 mmHg BP Diastolic 76 mmHg Heart Rate 72 /min Respiratory Rate 16 /min Height 66 inches 5'6" Weight 185.00 lb Pain Level 4 4/10, Pain at this time. Pain Level With Medicine 4 4/10, on average with meds Pain Level Without Medicine 10 06/06 without meds BMI (Body Mass Index) 29.9 kg/m2 08/23/2016 11:24am BP Systolic 126 mmHg BP Diastolic 76 mmHg Heart Rate 80 /min Respiratory Rate 18 /min Height 66 inches 5'6" Weight 185.00 lb Pain Level 7 7/10, Pain at this time. Pain Level With Medicine 5 5/10, on average with meds Pain Level Without Medicine 10 06/06 without meds BMI (Body Mass Index) 29.9 kg/m2 07/18/2016 11:16am BP Systolic 130 mmHg BP Diastolic 76 mmHg Heart Rate 78 /min Respiratory Rate 18 /min Height 66 inches 5'6" Weight 185.00 lb Pain Level 8 Pain at this time. Pain Level With Medicine 7 on average with meds Pain Level Without Medicine 10 06/06 without meds BMI (Body Mass Index) 29.9 kg/m2 07/04/2016 11:02am BP Systolic 124 mmHg BP Diastolic 76 mmHg Heart Rate 74 /min Respiratory Rate 20 /min Height 66 inches 5'6" Weight 185.00 lb Pain Level 6 Pain at this time. Pain Level With Medicine 5 on average with meds Pain Level Without Medicine 10 06/06 without meds BMI (Body Mass Index) 29.9 kg/m2 06/21/2016 10:18am BP Systolic 128 mmHg BP Diastolic 76 mmHg Heart Rate 74 /min Respiratory Rate 20 /min Height 66 inches 5'6" Weight 184.00 lb Pain Level 6 Pain at this time. Pain Level With Medicine 5 on average with meds Pain Level Without Medicine 10 06/06 without meds BMI (Body Mass Index) 29.7 kg/m2 06/06/2016 10:29am BP Systolic 128 mmHg BP Diastolic 86 mmHg Heart Rate 84 /min Respiratory Rate 20 /min Height 66 inches 5'6" Weight 184.00 lb Pain Level 6 Pain at this time. Pain Level With Medicine 5 on average with meds Pain Level Without Medicine 10 06/06 without meds BMI (Body Mass Index) 29.7 kg/m2 05/24/2016 2:24pm BP Systolic 126 mmHg BP Diastolic 84 mmHg Heart Rate 82 /min Respiratory Rate 18 /min Height 66 inches 5'6" Weight 184.00 lb Pain Level 7 Pain at this time. Pain Level Without Medicine 10 06/06 without meds BMI (Body Mass Index) 29.7 kg/m2 Results Description No Information Available Procedures Date Code Description Status 09/04/2018 06896 Omt 1-2 Body Regions Completed 09/04/2018 68688 Therapeutic, Prophylactic Or Diagnostic Injection Subq/Im Completed 08/06/2018 40210 Omt 1-2 Body Regions Completed 08/06/2018 55124 Therapeutic, Prophylactic Or Diagnostic Injection Subq/Im Completed 07/10/2018 87323 Therapeutic, Prophylactic Or Diagnostic Injection Subq/Im Completed 06/12/2018 06898 Therapeutic, Prophylactic Or Diagnostic Injection Subq/Im Completed 06/12/2018 74230 U/S Guidance For Needle Placement Completed 06/12/201892348 Inject Tendon/Ligament Completed 06/12/201864018 Inject Tendon/Ligament Completed 05/08/201812480 Inject Tendon/Ligament Completed 05/08/201837854 Inject Tendon/Ligament Completed 05/08/201869241 Inject Tendon/Ligament Completed 05/08/201899220 Inject Tendon/Ligament Completed 05/08/201847129 Injection, Tendon Origin/Insertion Completed 05/08/2018 Injection, Tendon Origin/Insertion Completed 05/08/201848788 Injection, Single Or Mutiple Trigger Points One Or Two Completed Muscles 05/08/2018 98608 Therapeutic, Prophylactic Or Diagnostic Injection Subq/Im Completed 04/10/2018 43738 Therapeutic, Prophylactic Or Diagnostic Injection Subq/Im Completed 03/13/2018 50831 Omt 1-2 Body Regions Completed 03/13/2018 74208 Therapeutic, Prophylactic Or Diagnostic Injection Subq/Im Completed 02/12/2018 32403 Therapeutic, Prophylactic Or Diagnostic Injection Subq/Im Completed 01/15/2018 74083 Therapeutic, Prophylactic Or Diagnostic Injection Subq/Im Completed 12/12/2017 57833 Therapeutic, Prophylactic Or Diagnostic Injection Subq/Im Completed 03/21/201726661 Inject Tendon/Ligament Completed 03/21/201747692 Injection, Tendon Origin/Insertion Completed 03/21/201756490 Injection, Single Or Mutiple Trigger Points One Or Two Completed Muscles 03/21/2017 26351 Therapeutic, Prophylactic Or Diagnostic Injection Subq/Im Completed 03/21/2017 54149 Omt 3-4 Body Regions Completed 02/20/2017 91533 Omt 3-4 Body Regions Completed 02/20/2017 39033 Therapeutic, Prophylactic Or Diagnostic Injection Subq/Im Completed 01/20/2017 22969 Therapeutic, Prophylactic Or Diagnostic Injection Subq/Im Completed 12/20/2016 36837 Omt 3-4 Body Regions Completed 12/20/2016 33415 Therapeutic, Prophylactic Or Diagnostic Injection Subq/Im Completed 11/15/2016 60458 Therapeutic, Prophylactic Or Diagnostic Injection Subq/Im Completed 10/18/2016 65159 Omt 1-2 Body Regions Completed 10/18/2016 51524 Therapeutic, Prophylactic Or Diagnostic Injection Subq/Im Completed 10/04/201652677 Injection, Single Or Mutiple Trigger Points One Or Two Completed Muscles 10/04/2016 20933 Injection For Nerve Block, Suprascapular Nerve Completed 10/04/2016 17766 Omt 1-2 Body Regions Completed 09/20/2016 20722 Omt 3-4 Body Regions Completed 07/04/2016 63300 U/S Guidance For Needle Placement Completed 07/04/201630009 Inject Tendon/Ligament Completed 06/21/2016 34266 Therapeutic, Prophylactic Or Diagnostic Injection Subq/Im Completed 06/21/201641256 Injection, Single Or Mutiple Trigger Points One Or Two Completed Muscles 06/21/201681508 Injection, Tendon Origin/Insertion Completed 06/21/201646969 Inject Tendon/Ligament Completed 06/21/2016 16855 Inject Tendon/Ligament Completed 06/06/2016 44154 Omt 1-2 Body Regions Completed 06/06/2016 41490 Therapeutic, Prophylactic Or Diagnostic Injection Subq/Im Completed Encounters Type Date Location Provider Dx Diagnosis Office Visit 09/04/2018 Main Office as Of Jaime Alvarenga DO G89.29 Other chronic pain 10:15a 09/28/13 MPH M54.5 Low back pain M99.03 Segmental and somatic dysfunction of lumbar region M25.551 Pain in right hip R53.83 Other fatigue Z79.891 [facility] (current) use of opiate analgesic Office Visit 08/06/2018 10:30a Main Office as Jaime Alvarenga G89.29 Other chronic Of 09/28/13 DO, MPH pain M54.5 Low back pain M99.03 Segmental and somatic dysfunction of lumbar region M25.551 Pain in right hip 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 R53.83 Other fatigue Office Visit 07/10/2018 10:15a Main Office as Jaime Alvarenga G89.29 Other chronic Of 09/28/13 DO, MPH pain M54.5 Low back pain M25.551 Pain in right hip R53.83 Other fatigue Z79.891 MCC (current) use of opiate analgesic Office Visit 06/12/2018 11:00a Main Office as Jaime Alvarenga G89.29 Other chronic Of 09/28/13 DO, MPH pain M54.5 Low back pain M65.88 Other synovitis and tenosynovitis, other site M25.551 Pain in right hip R53.83 Other fatigue 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 Office Visit 05/08/2018 11:30a Main Office as Jaime Alvarenga G89.29 Other chronic Of 09/28/13 DO, MPH pain M54.5 Low back pain M54.2 Cervicalgia M65.88 Other synovitis and tenosynovitis, other site M79.1 Myalgia R53.83 Other fatigue Z79.891 MCC (current) use of opiate analgesic Office Visit 04/10/2018 11:30a Main Office as Jaime Alvarenga G89.29 Other chronic Of 09/28/13 DO, MPH pain M54.2 Cervicalgia M25.561 Pain in right knee M25.552 Pain in left hip M54.5 Low back pain Z79.891 MCC (current) use of opiate analgesic R53.83 Other fatigue Office Visit 03/13/2018 10:15a Main Office as Jaime Alvarenga G89.29 Other chronic Of 09/28/13 DO, MPH pain M54.2 Cervicalgia M99.01 Segmental and somatic dysfunction of cervical region M54.5 Low back pain M25.561 Pain in right knee R53.83 Other fatigue 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 Office Visit 02/12/2018 11:30a Main Office as Jaime Alvarenga G89.29 Other chronic Of 09/28/13 DO, MPH pain M54.5 Low back pain M25.561 Pain in right knee M54.2 Cervicalgia R53.83 Other fatigue 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 Office Visit 01/15/2018 11:45a Main Office as Jaime Alvarenga G89.29 Other chronic Of 09/28/13 DO, MPH pain M54.5 Low back pain M25.561 Pain in right knee M25.511 Pain in right shoulder M54.2 Cervicalgia M77.11 Lateral epicondylitis, right elbow R53.83 Other fatigue Z71.89 Other specified counseling Z79.891 MCC (current) use of opiate analgesic Office Visit 12/12/2017 11:30a Main Office as Jaime Alvarenga G89.29 Other chronic Of 09/28/13 DO, MPH pain M54.5 Low back pain M25.561 Pain in right knee Z71.89 Other specified counseling R53.83 Other fatigue 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 Office Visit 11/14/2017 11:30a Main Office as Jaime Alvarenga G89.29 Other chronic Of 09/28/13 DO, MPH pain M54.5 Low back pain Z71.89 Other specified counseling M25.561 Pain in right knee 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 Office Visit 10/16/2017 10:00a Main Office as Jaime Alvarenga G89.29 Other chronic Of 09/28/13 DO, MPH pain M54.5 Low back pain M25.561 Pain in right knee F17.210 Nicotine dependence, cigarettes, uncomplicated Z79.891 MCC (current) use of opiate analgesic Office Visit 09/12/2017 3:00p Main Office as Jaime Alvarenga G89.29 Other chronic Of 09/28/13 DO, MPH pain M54.5 Low back pain Z79.891 MCC (current) use of opiate analgesic F17.210 Nicotine dependence, cigarettes, uncomplicated Office Visit 2017 10:45a Main Office as Jaime Alvarenga G89.29 Other chronic Of 09/28/13 DO, MPH pain M54.5 Low back pain M54.2 Cervicalgia M25.511 Pain in right shoulder Z79.891 MCC (current) use of opiate analgesic Office Visit 07/18/2017 10:45a Main Office as Jaime Alvarenga G89.29 Other chronic Of 09/28/13 DO, MPH pain M54.5 Low back pain M54.2 Cervicalgia M25.511 Pain in right shoulder 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 Office Visit 06/19/2017 10:30a Main Office as Ladonna Lindsay G89.29 Other chronic Of 09/28/13 E [employer] pain M25.511 Pain in right shoulder M54.2 Cervicalgia M54.5 Low back pain Z71.89 Other specified counseling Z79.891 MCC (current) use of opiate analgesic Office Visit 05/16/2017 10:30a Main Office as Ladonna Lindsay G89.29 Other chronic Of 09/28/13 E [employer] pain M54.2 Cervicalgia M54.5 Low back pain M25.511 Pain in right shoulder M77.11 Lateral epicondylitis, right elbow Z71.89 Other specified counseling 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 Office Visit 04/18/2017 10:00a Main Office as Ladonna Lindsay G89.29 Other chronic Of 09/28/13 E [employer] pain M54.5 Low back pain M54.2 Cervicalgia M25.511 Pain in right shoulder Z71.89 Other specified counseling 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 Office Visit 03/21/2017 10:00a Main Office as Jaime Alvarenga G89.29 Other chronic Of 09/28/13 DO, MPH pain M54.2 Cervicalgia M99.01 Segmental and somatic dysfunction of cervical region M54.6 Pain in thoracic spine M99.02 Segmental and somatic dysfunction of thoracic region M54.5 Low back pain M99.03 Segmental and somatic dysfunction of lumbar region R53.83 Other fatigue M25.552 Pain in left hip M79.1 Myalgia M65.88 Other synovitis and tenosynovitis, other site Z79.891 MCC (current) use of opiate analgesic Office Visit 02/20/2017 10:45a Main Office as Jaime Alvarenga G89.29 Other chronic Of 09/28/13 DO, MPH pain M54.2 Cervicalgia M99.01 Segmental and somatic dysfunction of cervical region M54.6 Pain in thoracic spine M99.02 Segmental and somatic dysfunction of thoracic region M54.5 Low back pain M99.03 Segmental and somatic dysfunction of lumbar region R53.83 Other fatigue 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 Office Visit 01/20/2017 1:45p Main Office as Jaime Alvarenga G89.29 Other chronic Of 09/28/13 DO, MPH pain M54.2 Cervicalgia M54.6 Pain in thoracic spine M54.5 Low back pain M25.511 Pain in right shoulder R53.83 Other fatigue Z79.891 MCC (current) use of opiate analgesic Office Visit 12/20/2016 10:30a Main Office as Ladonna Lindsay G89.29 Other chronic Of 09/28/13 E [employer] pain M54.2 Cervicalgia M99.01 Segmental and somatic dysfunction of cervical region M54.6 Pain in thoracic spine M99.02 Segmental and somatic dysfunction of thoracic region M54.5 Low back pain M99.03 Segmental and somatic dysfunction of lumbar region M25.511 Pain in right shoulder R53.83 Other fatigue Z71.89 Other specified counseling 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 K21.9 Gastro-esophageal reflux disease without esophagitis E03.8 Other specified hypothyroidism F34.1 Dysthymic disorder Office Visit 11/15/2016 10:30a Main Office as Ladonna Lindsay [id number] Other chronic Of 09/28/13 E [employer] pain M54.5 Low back pain M25.511 Pain in right shoulder R53.83 Other fatigue Z79.891 [facility] (current) use of opiate analgesic Z71.89 Other specified counseling Office Visit 10/18/2016 11:00a Main Office as Jaime Alvarenga [id number] Other chronic Of 09/28/13 DO, [facility] pain M25.511 Pain in right shoulder M99.07 Segmental and somatic dysfunction of upper extremity M79.1 Myalgia E78.2 Mixed hyperlipidemia I10 Essential (primary) hypertension K21.9 Gastro-esophageal reflux disease without esophagitis R53.83 Other fatigue G90.3 Multi-system degeneration of the autonomic nervous system Z79.891 [facility] (current) use of opiate analgesic Office Visit 10/04/2016 3:00p Main Office as Ladonna Lindsay [id number] Other chronic Of 09/28/13 E [employer] pain M25.511 Pain in right shoulder M79.1 Myalgia M99.07 Segmental and somatic dysfunction of upper extremity E78.2 Mixed hyperlipidemia I10 Essential (primary) hypertension K21.9 Gastro-esophageal reflux disease without esophagitis F34.1 Dysthymic disorder E03.8 Other specified hypothyroidism 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 M54.12 Radiculopathy, cervical region Office Visit 09/20/2016 11:00a Main Office as Ladonna Lindsay [id number] Other chronic Of 09/28/13 E [employer] pain M54.2 Cervicalgia M99.01 Segmental and somatic dysfunction of cervical region M54.6 Pain in thoracic spine M99.02 Segmental and somatic dysfunction of thoracic region M25.511 Pain in right shoulder M99.07 Segmental and somatic dysfunction of upper extremity Z71.89 Other specified counseling Office Visit 08/23/2016 11:30a Main Office as Ladonna Lindsay [id number] Other chronic Of 09/28/13 E [employer] pain M54.5 Low back pain 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1 Myalgia M46.07 Spinal enthesopathy, lumbosacral region R53.83 Other fatigue Z79.891 [facility] (current) use of opiate analgesic Office Visit 06/06/2016 10:30a Main Office as Jaime Alvarenga G89.29 Other chronic Of 09/28/13 DO, MPH pain M54.5 Low back pain M70.62 Trochanteric bursitis, left hip M99.05 Segmental and somatic dysfunction of pelvic region R53.83 Other fatigue 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 Symptoms and complaints discussed and reviewed today. No significant changes in physical findings. Continue current medical pain management.M54.5 Low back painComments:Chronic. Symptoms and complaints discussed and reviewed today.No changes in physical findings. Patient is stable and comfortable when current medical therapy is rendered.M25.551 Pain in right hipComments:Chronic. Symptoms and complaints discussed and reviewed today. No significant changes in physical findings. Continue current medical pain management.R53.83 Other fatigueComments:Symptoms and complaints discussed and reviewed today. No significant changes in physical findings. Continue current medical pain management. B12 injection administered after patient evaluated. 1ml IM for fatigue. (See Consent for injection-B12 document for lot number and expiration date.)Z79.891 [facility] (current) use of opiate analgesicNew Labs: Urine Drug Screen, Ordered: 10/02/18Comments:Urine drug screen sample taken today to monitor opiate use and to monitor use of illicit substances.Will discuss results at next appointment.The following tests were ordered:6 AM, AMPH , ITA, TERRY, BUP, CARIS, COCM, COT, ETG, FENT, MCSHSG, OPI, OXY, PCP, TAPEN, XTSY, ZOLP. ~I_A urine drug test (UDT) was ordered for this patient and collected on site today. Creatinine has been ordered as well for specimen validity, not for kidney function. Preliminary UDT results are not final and should not be used to determine patient care or plan of treatment. Initially a qualitative immunoassay screen will be done. Any inconsistent or positive findings will be further tested with a more comprehensive quantitative confirmation LCMS study. It is part of the treatment process of prescribing controlled substances and is considered standard of care.~i_AllComments:All above symptoms and complaints discussed as well as diagnoses reviewed.Continue trial of opioid pain management - note changes below; injection therapy, osteopathic manipulation (OMT), PT / modalities, and consults as needed to manage chronic pain.Side effects discussed; anticipatory guidance given. Patient clearly understands and agrees with all medical treatments and suggestions. All medicines prescribed are adequate and appropriate for this patient's complaint of pain, medical history, physical, and personal goals.Goals of Treatment are to provide adequate and appropriate multidisciplinary medical pain management to increase/ maintain patient's quality of life and functionality while maintaining satisfactory side effect profile and minimizing correction end-organ damage. Activity as toleratedContinue with PCP
[2018-10-23 15:14] VITALS: BP 119/50
--- NOTE | 2018-10-23 15:47 | UC ---
UC General HPI - HPI Summary HPI Summary: 2-3 WEEK HX OF SINUS PAIN, PRESSURE AND CONGESTION PLUS COUGH WITH CHEST CONGESTION AND SOB. NO FEVER OR CP. HX "TOUCH OF COPD" PLUS SMOKES. - History of Current Complaint Chief Complaint: UCGeneralIllness Stated Complaint: UPPER RESPITORY,SINUSES,COUGH Time Seen by Provider: 10/23/18 15:33 Hx Obtained From: Patient Hx Last Menstrual Period: 2012 Onset/Duration: Gradual Onset Timing: Constant Pain Intensity: 0 Associated Signs & Symptoms: Negative: Chest Pain, Diarrhea, Nausea, Vomiting - Allergy/Home Medications Allergies/Adverse Reactions: Allergies Allergy/AdvReac Type Severity Reaction Status Date / Time gabapentin AdvReac Altered Verified 10/23/18 15:15 Mental Status tramadol AdvReac Altered Verified 10/23/18 15:15 Mental Status PMH/Surg Hx/FS Hx/Imm Hx Endocrine History: Thyroid Disease, Dyslipidemia Cardiovascular History: Hypertension GI/ History: Gastroesophageal Reflux - Surgical History Surgical History: Yes Surgery Procedure, Year, and Place: left leg fx with hardware 2009 -[facility]. right middle finger trigger release - [place]. left thumb trigger finger release - [place]. Right breast biopsy - [facility]. right knee arthroscopy october 2017 - [facility] – [place]. left wrist fx/plate & 8 screws. uterine ablation - [facility]. Left wrist plate/screws [facility]-01/2018 - Family History Known Family History: Positive: Respiratory Disease - mom asthma - Social History Alcohol Use: Weekly Alcohol Amount: "couple a week" Substance Use Type: Prescribed Substance Use Comment - Amount & Last Used: takes oxycodone for chronic back issue Smoking Status (MU): Heavy Every Day Tobacco Smoker Type: Cigarettes Amount Used/How Often: 1 ppd Length of Time of Smoking/Using Tobacco: 37 +Years Have You Smoked in the Last Year: Yes Household Exposure Type: Cigarettes - Immunization History Most Recent Influenza Vaccination: FALL 2015 Review of Systems All Other Systems Reviewed And Are Negative: Yes Constitutional: Negative: Fever Skin: Positive: Negative Eyes: Positive: Negative ENT: Positive: Nasal Discharge, Sinus Congestion, Sinus Pain/Tenderness Respiratory: Positive: Shortness Of Breath, Cough Cardiovascular: Positive: Negative Gastrointestinal: Positive: Negative Genitourinary: Positive: Negative Motor: Positive: Negative Neurovascular: Positive: Negative Musculoskeletal: Positive: Negative Neurological: Positive: Negative Psychological: Positive: Negative Physical Exam Triage Information Reviewed: Yes Appearance: Well-Appearing Vital Signs: Initial Vital Signs Temp 97.8 F 10/23/18 15:11 Pulse 85 10/23/18 15:11 Resp 18 10/23/18 15:11 BP 119/50 10/23/18 15:11 Pulse Ox 99 10/23/18 15:11 Vital Signs Reviewed: Yes Eyes: Positive: Conjunctiva Clear ENT: Positive: Pharyngeal erythema, Nasal congestion, TMs normal, Sinus tenderness. Negative: Nasal drainage Neck: Positive: Supple, Nontender, No Lymphadenopathy Respiratory: Positive: No respiratory distress, Decreased breath sounds, Other: - SCATTERED WHEEZES. COUGH IS CONGESTED. Cardiovascular: Positive: RRR, No Murmur Abdomen Description: Positive: Nontender, No Organomegaly, Soft Bowel Sounds: Positive: Present Musculoskeletal: Positive: ROM Intact Neurological: Positive: Alert Psychological: Positive: Age Appropriate Behavior Skin Exam: Normal Course/Dx - Differential Dx - Multi-Symptom Differential Diagnoses: Other - URI, SINSUITIS, COPD, PNEUMONIA, BRONCHITIS. NO CONCERN FOR PE - Diagnoses Provider Diagnosis: Sinusitis, COPD (chronic obstructive pulmonary disease) Discharge - Sign-Out/Discharge Documenting (check all that apply): Patient Departure All imaging exams completed and their final reports reviewed: No Studies - Discharge Plan Condition: Stable Disposition: HOME Prescriptions: DOXYcycline CAP(*) [DOXYcycline 100MG CAP(*)] 100 mg PO BID 10 Days #20 cap predniSONE [Prednisone 20 MG TAB] 40 mg PO DAILY 5 Days #10 tablet Patient Education Materials: Sinusitis (ED), COPD (Chronic Obstructive Pulmonary Disease) (ED) Referrals: Xin Ridley MD [Primary Care Provider] - 5 Days Additional Instructions: USE RESCUE INHALER 2 PUFFS EVERY 6 HOURS - Billing Disposition and Condition Condition: STABLE Disposition: Home - Attestation Statements Provider Attestation: Per institutional requirements, I have reviewed the chart, however, I was not consulted specifically or made aware of this patient by the midlevel provider. I did not personally evaluate, interact with , or disposition this patient.
== END 2018-10-23 15:56 | disposition home or self-care (01) ==
LOC: UCCORT 13:41
DX: J32.9 Chronic sinusitis, unspecified (principal); J44.9 Chronic obstructive pulmonary disease, unspecified; I10 Essential (primary) hypertension; F17.290 Nicotine dependence, other tobacco product, uncomplicated; Z88.8 Allergy status to other drugs, medicaments and biological substances; Z88.5 Allergy status to narcotic agent
CPT/HCPCS: 99212; G0463

== ENCOUNTER 2019-05-21 11:12 | Emergency (ER) | payer OTHER ==
--- OUTSIDE RECORDS SUMMARY | 2019-05-21 11:54 | XMS REPORT | Continuity of Care Document ---
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 [phone] Problems Active Problems Provider Date History of polyp of colon lAlan Can MD Onset: 06/01/2015 Note: 4 TA, colo to cecum 2014 Diverticular disease of colon Allan Can MD Onset: 06/02/2015 Gastroesophageal reflux disease Allan Can MD Onset: 06/02/2015 Degenerative joint disease involving multiple Allan Can MD Onset: 2014 joints Depressive disorder Allan Can MD Onset: 06/02/2015 Anxiety state Allan Can MD Onset: 06/02/2015 Allergic rhinitis due to animals Allan Can MD Onset: 06/02/2015 Asthma Allan Can MD Onset: 06/02/2015 Uterine leiomyoma Allna Can MD Onset: 06/02/2015 Leslie's esophagus Allan Can MD Onset: 06/18/2015 Note: 1st upper to D2 May 2015 Essential hypertension Allan Can MD Onset: 07/07/2015 Tobacco user Xin Ridley MD Onset: 03/31/2016 Thoracic and lumbosacral neuritis Xin Ridley MD Onset: 03/31/2016 Chronic obstructive lung disease Xin Ridley MD Onset: 06/27/2016 Hypothyroidism Xin Ridley MD Onset: 06/27/2016 Benign neoplasm of colon Davey Orosco MD Onset: 11/25/2016 Pure hypercholesterolemia Onset: 12/26/2016 Counseling about tobacco use Xin Ridley MD Onset: 12/26/2016 Non-toxic multinodular goiter Xin Ridley MD Onset: 06/26/2017 FH: Diabetes mellitus Xin Ridley MD Onset: 12/25/2017 Hyperlipidemia Xin Ridley MD Onset: 12/31/2018 Chronic obstructive pulmonary disease with Xin Ridley MD Onset: 2018 (acute) exacerbation Neoplasm of uncertain behavior of breast Xin Ridley MD Onset: 12/31/2018 Counseling about tobacco use Aquiles Bateman MD Onset: 01/23/2019 Benign tumor of breast Xin Ridley MD Onset: 03/04/2019 Social History Type Date Description Comments Sex Unknown Tobacco Use Start: Unknown Current Cigarette 1 PPD X 38 YR Smoker 1 Pack Daily ETOH Use Occasionally consumes 1-2 dr/MO alcohol Recreational Drug Use Denies Drug Use Tobacco Use Start: Unknown Patient is a current 1 pack a day at smoker, smokes every most day Smoking Status Reviewed: 04/18/19 Patient is a current 1 pack a day at smoker, smokes every most day Exercise Type/Frequency Exercises rarely Allergies, Adverse Reactions, Alerts Active Allergies Reaction Severity Comments Date Tramadol ineffective 12/02/2013 Gabapentin confusion 12/22/2014 Bupropion suicidal thoughts 06/02/2015 Nortriptyline nightmares, altered cognition Severe 08/25/2015 Inactive Allergies NKDA 03/30/2010 Medications Active Medications SIG Qnty Indications Ordering Date Provider Ventolin HFA Use 2 Puffs By 18units Xin Ridley, 02/18/2019 Mouth Every 4 MD 108(90Base) mcg/Act Hours as Needed Aerosol Maximum Daily Dose = 12 Puffs Furosemide take one tablet by 30tabs Xin Ridley, 02/11/2019 40mg Tablets mouth in the MD morning, may take a 2nd tab of needed at noon Potassium Chloride ER take 1 tablets by 30tabs Xin Ridley, 02/11/2019 mouth every MD 10Meq Tablets ER morning. Paroxetine HCL 1 by mouth 1x/day 90tabs F32.9 Xin Ridley, 01/04/2019 40mg , note new dose MD Tablets Ranitidine HCL Take One Tablet By 30tabs Xin Ridley, 12/25/2017 150mg Mouth Every Day Tablets Omeprazole Take One Capsule 30caps Xin Ridley, 12/22/2017 40mg By Mouth 2x/day Capsules Atorvastatin Calcium Take One Tablet By 30tabs Xin Ridley, 07/18/2016 Mouth AT Bedtime 40mg Tablets Fluticasone 2 sprays 48gm J30.9 Xin Ridley, 11/16/2015 Propionate intranasal every MD 50mcg/Act day Suspension Lisinopril Take One Tablet By 30tabs I10 Xin Ridley, 11/16/2015 40mg Tablets Mouth Every Day Clonidine HCL Take One Tablet By 60tabs Xin Ridley, 07/07/2015 0.1mg Mouth Twice A Day Tablets Meloxicam Take One Tablet By 30tabs Xin Ridley, 06/02/2015 15mg Tablets Mouth Every Day MD With Food Or Snack Proair HFA 2 inhalations 8.500gm Xin Ridley, 06/16/2009 108(90Base) every 4 hours as MD mcg/Lg Aerosol needed Multi-Vitamins 1 po qd Unknown Tablets Aspirin 1 by mouth every Unknown 81mg Tablets day Acetaminophen Extra 1-2 tab every 4 150tabs Xin Ridley, Strength hours as needed 500mg Tablets Levothyroxine Sodium 1 by mouth every Unknown day 25mcg Tablets Suboxone 1 film sublingual Unknown 8-2mg Film twice a day - emergency fill - early History Medications Golytely drink half the 4000ml Thad Bauer, 03/12/2019 - 236gm evening before 03/12/2019 Solution Rec and half the morning of the procedure (1 cup every 10') Citroma drink 1 bottle at 296ml K63.5 Thad Bauer, 03/04/2019 - 12pm (noon)the 04/12/2019 1.745GM/30ML day before the Solution procedure Bisacodyl Ec take 4 tablets by 4tabs K63.5 Thad Bauer, 03/04/2019 - 5mg mouth at 8pm day 04/12/[address] before procedure Suprep Bowel Prep one bottle at 354ml K63.5 Thad Bauer, 03/04/2019 - Kit night and one in 04/12/2019 the morning 17.5-3.13-1.6GM/177 ML Solution Duloxetine HCL 1 cap by mouth 30capXin Bunch MD 12/31/2018 - 60mg every other day 01/04/[address] Julio for 2 weeks , then 1 x/day Triamterene/Hydroch 1 by mouth every 30capXin Bunch MD 2018 - lorothiazide day if needed for 02/11/2019 swelling 37.5-25mg Capsules Immunizations CPT Code Status Date Vaccine Lot # [id number] Given 07/06/2018 Influenza Vaccine (Fluzone) Age 3 And Older 89587 Given 06/26/2017 Influenza Virus Vaccine, Quadrivalent, Slit Virus, [id number] Im Use 90696 Given 12/26/2016 Pneumovax Injection [id number] 88705 Given 06/20/2016 Influenza Virus Vaccine Split Virus Use For Individual 3Yr Older 93181 Given 08/25/2015 Tdap injection [id number] 00936 Given 07/07/2015 Tetnus Injection [id number] U-Flu Given 06/02/2015 Influenza,Unspecified [id number] Q2038 Given 06/02/2015 Influenza Vaccine (Fluzone) Age 3 And Older Q2038 Given 06/02/2015 Influenza Vaccine (Fluzone) Age 3 And Older 48523 Given 01/06/2015 Tdap injection 84499 Given 01/06/2015 Pneumococcal Conjugate Vaccine 13 Valent For Intramuscular Use U-Flu Given Unknown Influenza,Unspecified Vital Signs Date Vital Result Comment 04/18/2019 9:40am BP Systolic Sitting Left Arm 98 mmHg BP Diastolic Sitting Left Arm 70 mmHg Heart Rate 82 /min Respiratory Rate 16 /min Height 66 inches 5'6" Weight 188.00 lb BMI (Body Mass Index) 30.3 kg/m2 BSA (Body Surface Area) 1.95 m2 [place] body weight in kilograms 59 kg O2 % BldC Oximetry 96 % Ra 03/22/2019 2:30pm BP Systolic Sitting Left Arm 104 mmHg BP Diastolic Sitting Left Arm 60 mmHg Heart Rate 78 /min Respiratory Rate 18 /min Height 66 inches 5'6" Weight 186.00 lb BMI (Body Mass Index) 30.0 kg/m2 BSA (Body Surface Area) 1.94 m2 [place] body weight in kilograms 59 kg O2 % BldC Oximetry 97 % Results Test Date Facility Test Result H/L Range Note Laboratory test [facility] Laboratory Surgical SEE RESULT 1, 2 finding [phone] Pathology BELOW Order CBC W/Automated [facility] White Blood 7.5 K/uL Normal 3.1-10.7 3 Diff [address] [place] [address] [phone] Red Blood Count 4.59 M/uL Normal 3.90-5.40 Hemoglobin 13.9 gm/dL Normal 11.6-15.8 Hematocrit 42.8 % Normal 36.0-46.1 Mean Cell Volume 93.2 fl Normal 80.9-99.0 Mean Corpuscular HGB 30.3 pg Normal 25.9-32.7 Mean Corpuscular HGB Conc 32.5 g/dL Normal 30.8-34.3 Platelet Count 306 K/uL Normal 155-360 Red Cell Distri Width SD 44.3 fl Normal 36-47 Red Cell Distri Width %CV 13.0 % Normal 11.7-14.4 Mean Platelet Volume 10.7 fl Normal 8.9-12.4 Neut% 60.0 % Normal 40.4-72.8 Lymph % 27.5 % Normal 20.0-42.0 [place] % 7.2 % Normal 4.3-13.2 Eo% 4.2 % Normal 0.0-6.6 Bas% 0.7 % Normal 0.0-1.1 Immature Grans 0.4 % Normal 0.0-5.0 NRBC % 0.0 /100WBC < 10/ 100 WBC Neut# 4.52 K/uL Normal 1.8-7.0 Lymph # 2.07 K/uL Normal 1.0-4.0 Dawson # 0.54 K/uL Normal 0.3-0.9 Eos # 0.32 K/uL Normal 0.0-0.5 Baso # 0.05 K/uL Normal 0.0-0.1 Immature Grans Absolute 0.03 K/uL NRBC # 0.00 K/uL Comprehensive 12/31/2018 [facility] Glucose 94 mg/dL Normal 74-106 Metabolic Panel [address] [place] [address] [phone] BUN 16 mg/dL Normal 7-18 Creatinine 1.0 mg/dL Normal 0.6-1.3 Glom Filtration Rate, Estimate >60 mL/min >60 If >60 mL/min >60 4 BUN/Creat 16.0 ratio Sodium 139 mmol/L Normal 136-145 Potassium 4.2 mmol/L Normal 3.5-5.1 Chloride 106 mmol/L Normal 98-107 Carbon Dioxide 29 mmol/L Normal 21-32 Anion Gap 4 mEq/L Low 8-16 Calcium 9.3 mg/dL Normal 8.5-10.1 Total Protein 7.6 g/dL Normal 6.4-8.2 Albumin 4.1 g/dL Normal 3.4-5.0 Globulin 3.5 g/dL Normal 1.9-4.3 Alb/Glob 1.2 ratio Bilirubin,Total 0.5 mg/dL Normal 0.2-1.0 Sgot/Ast 20 U/L Normal 15-37 SGPT/Alt 27 U/L Normal 12-78 Alkaline Phosphatase 101 U/L Normal 45-117 LDL Cholesterol Profile 12/31/2018 [facility] Cholesterol 166 mg/dL <200 5 [address] [place] [address] [phone] Triglycerides 234 mg/dL High <150 6 HDL Cholesterol 63 mg/dL >40 7 LDL-Cholesterol 56 mg/dL < 100 8 Urine Dipstick 12/31/2018 [facility] Inhouse Ua Leuko - Negative Ua Nitrite - Negative Ua Urobilinogen .2 0.2 - 1.0 E.U./dL Ua Protein 1+ High Negative Ua PH 6 Low 6.5-7.5 Ua Blood - Negative Ua Specific [place] 1.030 1.010-1.030 Ua Ketones trace Negative Ua Bilirubin 1+ High Negative Ua Glucose - Negative 1 [id number] 2 SEE RESULT BELOW Name: ARELY GAVIRIA: [address]: Xin Ridley MD Acct: [id number] Unit: [id number] AGE: 58 Location: [facility] Re01/31/19 SEX: F Status: REG REF SPEC: [id number] CHERYL: 01/31/[address] [facility] [address]: John Quintero MD REQ: [id number] RECD: 01/31/191240 STATUS: JOHN PATTERSON DR: Xin Ridley MD _ ORDERED: LEVEL 4 COMMENTS: [id number] FINAL DIAGNOSIS Breast, left, 2:00, 6 cm from areola, core biopsy: -- Benign breast tissue with stromal fibrosis and duct ectasia. -- Microcalcifications are seen in association with benign breast tissue. -- No evidence of malignancy is identified. Comment: Correlation with clinical and imaging findings is recommended. PRE-OPERATIVE DIAGNOSIS Left breast mass at 2:00, 6 cm from nipple, 0.7 x 0.6 x 0.9 cm GROSS DESCRIPTION The specimen is received in formalin labeled, Left Breast Core Biopsies, and consists of a 0.6 x 0.6 x 0.2 cm aggregate of yellow-white irregular to cylindrical fibrofatty soft tissue fragments which is submitted entirely in one cassette. Signed by and Reported on: Lance Esqueda MD 03/15 1143 END OF REPORT DEPARTMENT OF PATHOLOGY, [address] [place] [address] Lance Esqueda M.D. Director [facility] # [id number] 3 Z13.0 E78.5 I10 4 Note: Persistent reduction for 3 months or more in an eGFR <60 mL/min/1.73 m2 defines CKD. Patients with eGFR values >/=60 mL/min/1.73 m2 may also have CKD if evidence of persistent proteinuria is present. The original MDRD equation for estimated GFR is not valid for patients less than 18 years of age. Additional information may be found at www.kdoqi.org. 5 Reference Guidelines*: Desirable: ........... < 200 mg/dL Borderline High: ..... 200-239 mg/dL High: ................ >= 240 mg/dL * The National Cholesterol Education Program (NCEP) 6 Reference Guidelines*: Normal: ............. < 150 mg/dL Borderline High: .... 150-199 mg/dL High: ............... 200-499 mg/dL Very High: .......... > 500 mg/dL * Source: National Cholesterol Education Program (NCEP) 7 Reference Guidelines*: Low HDL: ..... < 40 mg/dL Normal: ..... 40-60 mg/dL Desirable: ... > 60 mg/dL *The National Cholesterol Education Program(NCEP) 8 Reference Guidelines*: Optimal:........... <100 mg/dL Near Optimal....... 100-129 mg/dL Borderline High.... 130-159 mg/dL High............... 160-189 mg/dL Very High.......... >=190 mg/dL * Source: National Cholesterol Education Program (NCEP) Procedures Date Code Description Status 03/27/2019 57293 Colonoscopy With Biopsy Completed 03/27/2019 18390 EGD With Biopsy Completed 03/27/2019 [id number] Colonoscopy Completed 02/06/2019 96269 Bronchospasm Provocation Evaluation Multi Spirometric Completed Determinati 02/06/2019 92397 Spirometry Completed 01/31/2019 [id number] Mammogram Completed 01/16/2019 [id number] Mammogram Completed 12/31/2018 15888 Brief Emotional/Behav Assessment W/ Scoring Doc Per Completed Standard Inst 12/31/2018 [id number] Mammogram Completed 12/31/2018 [id number] Bone Mineral Density Test Completed 02/22/2018 [id number] Mammogram Completed 05/18/2015 66256264 Colonoscopy Completed Medical Devices Description No Information Available Encounters Type Date Location Provider Dx Diagnosis Office Visit 03/22/2019 2:20p Pulmonology Diane Cortes PA R05 Cough F17.210 Nicotine dependence, cigarettes, uncomplicated Z71.6 Tobacco abuse counseling Office Visit 03/04/2019 1:30p GI Thad Bauer MD K22.70 Leslie's esophagus without dysplasia K63.5 Polyp of colon Office Visit 03/04/2019 4:00p Family Medicine Xin Ridley, F32.9 Major depressive Husam JEFFERS MD disorder, single episode, unspecified I10 Essential (primary) hypertension 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 Office Visit 01/23/2019 1:00p Pulmonology Aquiles Bateman MD J44.9 Chronic obstructive pulmonary disease, unspecified J30.89 Other allergic rhinitis F17.210 Nicotine dependence, cigarettes, uncomplicated Z71.6 Tobacco abuse counseling Office Visit 12/31/2018 9:00a Family Xin Hernandez, Z00.00 Encntr for Husam JEFFERS MD general adult medical exam w/o abnormal findings F32.9 Major depressive disorder, single episode, unspecified I10 Essential (primary) hypertension K22.70 Leslie's esophagus without dysplasia J44.9 Chronic obstructive pulmonary disease, unspecified E78.5 Hyperlipidemia, unspecified F17.210 Nicotine dependence, cigarettes, uncomplicated D48.62 Neoplasm of uncertain behavior of left breast Office Visit 10/29/2018 9:45a Family Medicine Xin Ridley, J44.1 Chronic obstructive Dale ZEYAD DC pulmonary disease w (acute) exacerbation F17.210 Nicotine dependence, cigarettes, uncomplicated Assessments Date Code Description Provider 04/18/2019 K62.1 Rectal polyp Thad Bauer MD 04/18/2019 K44.9 Diaphragmatic hernia without obstruction or Thad Bauer MD gangrene 04/18/2019 F17.210 Nicotine dependence, cigarettes, uncomplicated Thad Bauer MD 04/18/2019 K22.70 Leslie's esophagus without dysplasia Thad Bauer MD 03/27/2019 Z12.11 Encounter for screening for malignant neoplasm Thad Bauer MD of colon 03/27/2019 K44.9 Diaphragmatic hernia without obstruction or Thad Bauer MD gangrene 03/27/2019 K29.50 Unspecified chronic gastritis without bleeding Thad Bauer MD 03/27/2019 K62.1 Rectal polyp Thad Bauer MD 03/27/2019 K63.5 Polyp of colon Thad Bauer MD 03/22/2019 R05 Cough Diane Cortes PA 03/22/2019 F17.210 Nicotine dependence, cigarettes, uncomplicated Diane Cortes PA 03/22/2019 Z71.6 Tobacco abuse counseling Diane Cortes PA 03/04/2019 F32.9 Major depressive disorder, single episode, Xin Ridley MD unspecified 03/04/2019 K22.70 Leslie's esophagus without dysplasia Thad Bauer MD 03/04/2019 I10 Essential (primary) hypertension Xin Ridley MD 03/04/2019 K63.5 Polyp of colon Thad Bauer MD 03/04/2019 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 Xin Ridley MD 02/06/2019 J44.9 Chronic obstructive pulmonary disease, Aquiles Bateman MD unspecified 01/23/2019 J44.9 Chronic obstructive pulmonary disease, Aquiles Bateman MD unspecified 01/23/2019 J30.89 Other allergic rhinitis Aquiles Bateman MD 01/23/2019 F17.210 Nicotine dependence, cigarettes, uncomplicated Aquiles Bateman MD 01/23/2019 Z71.6 Tobacco abuse counseling Aquiles Bateman MD 12/31/2018 Z00.00 Encounter for general adult medical Xin Ridley MD examination without abno 12/31/2018 F32.9 Major depressive disorder, single episode, Xin Ridley MD unspecified 12/31/2018 I10 Essential (primary) hypertension Xin Ridley MD 12/31/2018 K22.70 Leslie's esophagus without dysplasia Xin Ridley MD 12/31/2018 J44.9 Chronic obstructive pulmonary disease, Xin Ridley MD unspecified 12/31/2018 E78.5 Hyperlipidemia, unspecified Xin Ridley MD 12/31/2018 F17.210 Nicotine dependence, cigarettes, uncomplicated Xin Ridley MD 12/31/2018 D48.62 Neoplasm of uncertain behavior of left breast Xin Ridley MD 10/29/2018 J44.1 Chronic obstructive pulmonary disease with Xin Ridley MD (acute) exacerbat 10/29/2018 F17.210 Nicotine dependence, cigarettes, uncomplicated Xin Ridley MD Plan of Treatment Future Appointment(s):09/09/2019 1:00 pm - Xin Ridley MD at [facility] RD04/18/2019 - Thad Bauer MDK62.1 Rectal polypComments: benign polyp prep suboptimalrepeat colon with EGD three jizsyT42.9 Diaphragmatic hernia without obstruction or gangreneComments:occasional heartburn controlled with exdtoxpibwR33.210 Nicotine dependence, cigarettes, uncomplicatedComments:increases risk of nsxdbgG84.70 Leslie's esophagus without dysplasiaComments:history of barretts; none detected this timerepeat surveillance in 3 yearsFollow up:3 years Functional Status Functional Condition Comment Date Status Glasses Active Mental Status Description No Information Available Referrals Refer to Reason for Referral Status Appt Date Aquiles Bateman MD COPD, SMOKER Closed 02/05/[address] [place] [address] [phone] Thad Bauer MD F/U BARRETTS, NEEDS SCOPING UP AND DOWN Closed [address] [place] [address] [phone]
--- OUTSIDE RECORDS SUMMARY | 2019-05-21 11:54 | XMS REPORT | Continuity of Care Document ---
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 Problems Provider Date Other tear of medial meniscus, current injury, Feliciano Aguilera MD Onset: 2017 right knee, subsequent encounter Derangement of knee Feliciano Aguilera MD Onset: 11/09/2017 Social History Type Date Description Comments Sex Unknown ETOH Use Occasionally consumes alcohol Tobacco Use Start: Unknown Heavy tobacco smoker (more than 10 cigarettes/day) Recreational Drug Use Denies Drug Use Smoking Status Reviewed: 04/12/19 Heavy tobacco smoker (more than 10 cigarettes/day) Exercise Type/Frequency Does not exercise Allergies, Adverse Reactions, Alerts Active Allergies Reaction Severity Comments Date Gabapentin Confused,dont talk 07/17/2017 Tramadol difficulty speaking and confusion. 07/17/2017 Seasonal-Spring/Fall 07/17/2017 Medications Active Medications SIG Qnty Indications Ordering Date Provider Magnesium With Vitamin D 2 by mouth every Unknown day Tablets Multi Adult Gummies 2 by mouth every Unknown Chewtabs day Esomeprazole Magnesium 1 po daily Xin Ridley, 40mg MD Capsules Lisinopril 1 po daily Xin Ridley, 40mg Tablets Atorvastatin Calcium 1 po daily Xin Ridley, 40mg MD Tablets Clonidine HCL 1 po bid Xin Ridley, 0.1mg Tablets Paroxetine HCL 1 po daily Xin Ridley, 20mg Tablets MD Arias 1 insert Unknown 10mcg Tablets vaginally once a week Amlodipine Besylate 1 po daily Unknown 5mg Tablets Ra Acid Brush Washer Maximum 1 PO Daily Kevin Sorto MD Strength 150mg Tablets Meloxicam take 1 tablet by Unknown 15mg Tablets mouth once daily with food Or Snack Cyclobenzaprine HCL take 1 tablet by Unknown 10mg mouth prn-has a Tablets couple left. Fluticasone Propionate 1 spray to each Xin Ridley, nostril daily prn 50mcg/Act Suspension Pravastatin Sodium 1 po zapata Unknown 40mg Tablets Furosemide Take One Tablet Unknown 40mg Tablets By Mouth Every Morning May Take 2ND Dose AT Noon If Needed Potassium Chloride ER Take One Tablet Unknown 10Meq By Mouth Every Tablets ER Morning Medications Administered in Office Medication SIG Qnty Indications Ordering Provider Date Celestone 3 mg and 3mg Gilson Coelho MD 04/01/2019 Injection Celestone 3 mg and 3mg Gilson Coelho MD 04/01/2019 Injection Celestone 3 mg and 3mg Gilson Coelho MD 07/17/2017 Injection Immunizations Description No Information Available Vital Signs Date Vital Result Comment 04/12/2019 2:47pm Height 66.25 inches 5'6.25" Weight 182.00 lb Heart Rate 91 /min BP Systolic Sitting 128 mmHg BP Diastolic Sitting 66 mmHg Respiratory Rate 12 /min Pain Level 3 O2 % BldC Oximetry 97 % BMI (Body Mass Index) 29.2 kg/m2 04/01/2019 2:43pm Height 66.25 inches 5'6.25" Weight 180.00 lb Heart Rate 99 /min BP Systolic Sitting 114 mmHg BP Diastolic Sitting 74 mmHg Respiratory Rate 16 /min Pain Level 6 O2 % BldC Oximetry 97 % BMI (Body Mass Index) 28.8 kg/m2 Results Description No Information Available Procedures Date Code Description Status 04/01/2019 35850 Inject/Drain Joint/Bursa Major W/O US Completed Medical Devices Description No Information Available Encounters Description No Information Available Assessments Date Code Description Provider 04/01/2019 M17.0 Bilateral primary osteoarthritis of knee Gilson Coelho MD Plan of Treatment No Information Available Functional Status Description No Information Available Mental Status Description No Information Available Referrals Description No Information Available
--- OUTSIDE RECORDS SUMMARY | 2019-05-21 11:54 | XMS REPORT | Continuity of Care Document ---
:1960 External Reference #:[id number] Author Name Diane Cortes PA (transmitted by agent of provider Aquiles Bateman) Address [address] [place] [address] Care Team Providers Name Role Phone Xin Ridley MD - Family Medicine Care Team Information Addiction Treatment Counselor Problems Active Problems Provider Date History of polyp of colon Allan Can MD Onset: 06/01/2015 Note: 4 TA, [...] Allan Can MD Onset: 06/02/2015 Uterine leiomyoma Allan Can MD Onset: 06/02/2015 Leslie's esophagus Allan [...] Medications SIG Qnty Indications Ordering Date Provider Venttrang HFA Use 2 Puffs By 18units Xin [...] Xin Ridley, 12/25/2017 150mg Mouth Every Day MD Tablets Omeprazole Take One Capsule 30caps Xin Ridley, 12/22/2017 40mg By Mouth 2x/day Capsules DR Atorvastatin Calcium Take One Tablet By 30tabs [...] 06/16/2009 108(90Base) every 4 hours as MD mcg/Act Aerosol needed Multi-Vitamins 1 po qd Unknown [...] Solution Duloxetine HCL 1 cap by mouth 30Xin Lisa MD 12/31/2018 - 60mg every other day 01/04/[address] Julio for 2 weeks , then 1 x/day Triamterene/Hydroch 1 by mouth every 30capXin Bunch MD 2018 - lorothiazide day if needed for 02/11/2019 swelling 37.5-25mg Capsules Immunizations CPT Code Status Date Vaccine Lot # [id number] Given 07/06/2018 Influenza Vaccine (Fluzone) Age 3 And Older 84160 Given 06/26/2017 Influenza Virus Vaccine, Quadrivalent, Slit Virus, [id number] Im Use 89118 Given 12/26/2016 Pneumovax Injection [id number] 37370 Given 06/20/2016 Influenza Virus Vaccine Split Virus Use For Individual 3Yr Older 38919 Given 08/25/2015 Tdap injection [id number] 61979 Given 07/07/2015 Tetnus Injection [id number] U-Flu Given 06/02/2015 Influenza,Unspecified [id number] Q2038 Given 06/02/2015 Influenza Vaccine (Fluzone) Age 3 And Older [id number] Given 06/02/2015 Influenza Vaccine (Fluzone) Age 3 And Older 69006 Given 01/06/2015 Tdap injection 71908 Given 01/06/2015 Pneumococcal Conjugate Vaccine 13 Valent For Intramuscular Use U-Flu Given Unknown Influenza,Unspecified Vital Signs Date Vital Result Comment 04/18/2019 9:40am BP Systolic Sitting Left Arm 98 mmHg BP Diastolic Sitting Left Arm 70 mmHg Heart Rate 82 /min Respiratory Rate 16 /min Height 66 inches 5'6" Weight 188.00 lb BMI (Body Mass Index) 30.3 kg/m2 BSA (Body Surface Area) 1.95 m2 [place] body weight in kilograms 59 kg O2 % BldC Oximetry 96 % Ra 03/22/2019 2:30pm BP Systolic Sitting Left Arm 104 mmHg BP Diastolic Sitting Left Arm 60 mmHg Heart Rate 78 /min Respiratory Rate 18 /min Height 66 inches 5'6" Weight 186.00 lb BMI (Body Mass Index) 30.0 kg/m2 BSA (Body Surface Area) 1.94 m2 [place] body weight in kilograms 59 kg O2 % BldC Oximetry 97 % Results Test Date Facility Test Result H/L Range Note Laboratory test [facility] SEE RESULT 1, 2 finding [phone] Pathology BELOW Order CBC W/Automated [facility] White Blood 7.5 K/uL Normal 3.1-10.7 3 Diff [address] [place], [place] [address] [phone] Red Blood Count 4.59 M/uL Normal 3.90-5.40 [...] 40.4-72.8 Lymph % 27.5 % Normal 20.0-42.0 Caroline % 7.2 % Normal 4.3-13.2 Eo% 4.2 % Normal 0.0-6.6 Bas% 0.7 % Normal 0.0-1.1 Immature Grans 0.4 % Normal 0.0-5.0 NRBC % 0.0 /100WBC < 10/ 100 WBC Neut# 4.52 K/uL Normal 1.8-7.0 Lymph # 2.07 K/uL Normal 1.0-4.0 Caroline # 0.54 K/uL Normal 0.3-0.9 Eos # 0.32 K/uL Normal 0.0-0.5 Baso # 0.05 K/uL Normal 0.0-0.1 Immature Grans Absolute 0.03 K/uL NRBC # 0.00 K/uL Comprehensive 12/31/2018 [facility] Glucose 94 mg/dL Normal 74-106 Metabolic Panel [address] [place] [address] [phone] BUN 16 mg/dL Normal 7-18 Creatinine 1.0 [...] U/L Normal 45-117 LDL Cholesterol Profile 12/31/2018 [facility] Cholesterol 166 mg/dL <200 5 [address] [place] [address] [phone] Triglycerides 234 mg/dL High <150 6 HDL Cholesterol 63 mg/dL >40 7 LDL-Cholesterol 56 mg/dL < 100 8 Urine Dipstick 12/31/2018 [facility] Ua Leuko - Negative Ua Nitrite - Negative Ua Urobilinogen .2 0.2 - 1.0 E.U./dL Ua Protein 1+ High Negative Ua PH 6 Low 6.5-7.5 Ua Blood - Negative Ua Specific [place] 1.030 1.010-1.030 Ua Ketones trace Negative Ua Bilirubin 1+ High Negative Ua Glucose - Negative 1 [id number] 2 SEE RESULT BELOW Name: ARELY GAVIRIA : [address]: Xin Ridley MD Acct: [id number] Unit: [id number] AGE: 58 Location: [facility] Re01/31/19 SEX: F Status: REG REF SPEC: [id number] CHERYL: 01/31/19 [facility] DR: John Quintero MD REQ: [id number] RECD: 01/31/191240 STATUS: JOHN PATTERSON DR: Xin Ridley MD _ ORDERED: LEVEL 4 COMMENTS: [id number] FINAL DIAGNOSIS Breast, left, 2:00, 6 cm [...] 1143 END OF REPORT DEPARTMENT OF PATHOLOGY, [address] [place] [address] Lance Esqueda M.D. Director [facility] # [id number] 3 Z13.0 E78.5 I10 4 Note: Persistent [...] (NCEP) Procedures Date Code Description Status 03/27/2019 93619 Colonoscopy With Biopsy Completed 03/27/2019 42650 EGD With Biopsy Completed 03/27/2019 [id number] Colonoscopy Completed 02/06/2019 64050 Bronchospasm Provocation Evaluation Multi Spirometric Completed Determinati 02/06/2019 16805 Spirometry Completed 01/31/2019 [id number] Mammogram Completed 01/16/2019 [id number] Mammogram Completed 12/31/2018 79453 Brief Emotional/Behav Assessment W/ Scoring Doc Per Completed Standard Inst 12/31/2018 [id number] Mammogram Completed 12/31/2018 [id number] Bone Mineral Density Test Completed 02/22/2018 [id number] Mammogram Completed 05/18/2015 [id number] Colonoscopy Completed Medical Devices Description No Information Available Encounters Type Date Location Provider Dx Diagnosis Office Visit 03/22/2019 2:20p Pulmonology Diane Cortes PA R05 Cough F17.210 Nicotine dependence, cigarettes, uncomplicated Z71.6 Tobacco abuse counseling Office Visit 03/04/2019 1:30p GI Thad Bauer MD K22.70 Leslie's esophagus without dysplasia K63.5 Polyp of colon Office Visit 03/04/2019 4:00p Family Xin Hernandez, F32.9 Major depressive Husam JEFFERS MD disorder, single episode, unspecified I10 Essential (primary) hypertension 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 Office Visit 01/23/2019 1:00p Pulmonology Aquiles Bateman MD J44.9 Chronic obstructive pulmonary disease, unspecified J30.89 Other allergic rhinitis F17.210 Nicotine dependence, cigarettes, uncomplicated Z71.6 Tobacco abuse counseling Office Visit 12/31/2018 9:00a Family Medicine Xin Ridley, Z00.00 Encntr for Husam JEFFERS MD general adult medical exam w/o abnormal findings F32.9 Major depressive disorder, single episode, unspecified I10 Essential (primary) hypertension K22.70 Leslie's esophagus without dysplasia J44.9 Chronic obstructive pulmonary disease, unspecified E78.5 Hyperlipidemia, unspecified F17.210 Nicotine dependence, cigarettes, uncomplicated D48.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 Weight loss and conditioning may help reduce your shortness of breath. Quitting smoking can help reduce your cough.Follow up:As needed, will follow with your primary care provider.F17.210 Nicotine dependence, cigarettes, uncomplicatedComments:Try Chantix once at night to help reduce your nausea and improve your tolerance. Set a quit date andreduce your cigarettes weekly. Patient counseled regarding smoking cessation. Discussed risks of cancer, heart attacks, and strokes associated with tobacco use. You Chest CT was negative for any concerning nodules.Z71.6 Tobacco abuse counselingComments:Counseled for 5 minutes. Functional Status Functional Condition Comment Date Status Glasses Active Mental Status Description No Information Available Referrals Refer to Reason for Referral Status Appt Date Aquiles Bateman MD COPD, SMOKER Closed 02/05/[address] [place] [address] [phone] Thad Bauer MD F/U ALIREZA, NEEDS SCOPING UP AND DOWN Closed [address] [place] [phone]
--- OUTSIDE RECORDS SUMMARY | 2019-05-21 11:54 | XMS REPORT | Continuity of Care Document ---
:1960 External Reference #:[id number] Author Name Jason Whitfield Care Team Providers Name Role Phone Xin Ridley MD Primary Care Physician Unavailable Payers Date Identification Numbers Payment Provider Subscriber Policy Number: [id number] [employer] Arely Gaviria PayID: [id number] [address] [address] [place] [address] Problems Active Problems Provider Date Other tear of medial meniscus, current injury, Feliciano Aguilera MD Onset: 2017 right knee, subsequent encounter Derangement of knee Feliciano Aguilera MD Onset: 11/09/2017 Family History Date Family Member(s) Observation Comments Father Lung Cancer Mother [place] Mother Asthma Mother allergies Social History Type Date Description Comments Sex Unknown Marital Status 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 07/17/2017 Seasonal-Spring/Fall 07/17/2017 Medications Active Medications SIG Qnty Indications Ordering Date Provider Potassium Chloride ER Take One Tablet Unknown 10Meq By Mouth Every Tablets ER Morning Furosemide Take One Tablet Unknown 40mg Tablets By Mouth Every Morning May Take 2ND Dose AT Noon If Needed Pravastatin Sodium 1 po zapata Unknown 40mg Tablets Fluticasone Propionate 1 spray to each Xin Ridley, nostril daily prn 50mcg/Act Suspension Cyclobenzaprine HCL take 1 tablet by Unknown 10mg mouth prn-has a Tablets couple left. 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 Maximum 1 PO Daily Kevin Sorto MD Strength 150mg Tablets Amlodipine Besylate 1 po daily Unknown 5mg Tablets Yuvafem 1 insert Unknown 10mcg Tablets vaginally once a week Paroxetine HCL 1 po daily Xin Ridley, 20mg Tablets MD Clonidine HCL 1 po bid KhaiXin, 0.1mg Tablets Atorvastatin Calcium 1 po daily Xin Ridley, 40mg MD Tablets Lisinopril 1 po daily Xin Ridley, 40mg Tablets Esomeprazole Magnesium 1 po daily Xin Ridley, 40mg MD Capsules DR Cortez Adult Gummies 2 by mouth every Unknown Chewtabs day Magnesium With Vitamin D 2 by mouth every Unknown day Tablets History Medications Ketorolac Tromethamine 1 tab by mouth 12tabs Feliciano Aguilera MD 10/30/2017 - 10mg every 6 hours as 03/31/2019 Tablets needed pain Percocet 1 tabs by mouth 16tabs Sherry Duque 10/30/2017 - 5-325mg Tablets every 6 hours as M.D. 03/31/2019 needed pain Levothyroxine Sodium 1 po daily Kevin Sorto MD - 25mcg 09/04/2017 Tablets Oxycodone HCL 1 po every 4 hrs Unknown - 10mg Tablets prn. 03/31/2019 Medications Administered in Office Medication SIG Qnty Indications Ordering Provider Date Celestone 3 mg and 3mg Gilson Coelho MD 04/01/2019 Injection Celestone 3 mg and 3mg Gilson Coelho MD 04/01/2019 Injection Celestone 3 mg and 3mg Gilson Coelho MD 07/17/2017 Injection Vital Signs Date Vital Result Comment 04/01/2019 2:43pm Height 66.25 inches 5'6.25" Weight 180.00 lb Heart Rate 99 /min BP Systolic Sitting 114 mmHg BP Diastolic Sitting 74 mmHg Respiratory Rate 16 /min Pain Level 6 O2 % BldC Oximetry 97 % BMI (Body Mass Index) 28.8 kg/m2 03/26/2018 10:39am Height 66.25 inches 5'6.25" Heart Rate 76 /min BP Systolic 98 mmHg BP Diastolic 72 mmHg Respiratory Rate 20 /min Body Temperature 98.1 F Pain Level 3 02/19/2018 11:05am Height 66.25 inches 5'6.25" Weight 185.00 lb Heart Rate 72 /min BP Systolic 132 mmHg BP Diastolic 78 mmHg Respiratory Rate 12 /min Body Temperature 98.9 F Pain Level 0 BMI (Body Mass Index) 29.6 kg/m2 02/07/2018 11:01am Height 66.25 inches 5'6.25" Weight 185.25 lb Heart Rate 76 /min BP Systolic 128 mmHg BP Diastolic 76 mmHg Respiratory Rate 16 /min Body Temperature 97.6 F Pain Level 10 BMI (Body Mass Index) 29.7 kg/m2 12/12/2017 10:22am Height 66.25 inches 5'6.25" Weight 189.00 lb BP Systolic 112 mmHg BP Diastolic 70 mmHg Respiratory Rate 20 /min Pain Level 0 BMI (Body Mass Index) 30.3 kg/m2 11/16/2017 2:29pm Height 66.25 inches 5'6.25" Weight 189.00 lb BP Systolic 122 mmHg BP Diastolic 72 mmHg Respiratory Rate 18 /min Pain Level 7 BMI (Body Mass Index) 30.3 kg/m2 11/09/2017 2:38pm Height 66.25 inches 5'6.25" Weight 189.00 lb per pt Heart Rate 76 /min BP Systolic 124 mmHg BP Diastolic 70 mmHg Respiratory Rate 16 /min Body Temperature 98.1 F Pain Level 7 BMI (Body Mass Index) 30.3 kg/m2 10/24/2017 11:29am Height 66.25 inches 5'6.25" Weight 189.00 lb Heart Rate 85 /min BP Systolic 128 mmHg BP Diastolic 72 mmHg Respiratory Rate 17 /min Body Temperature 98.2 F Pain Level 7 BMI (Body Mass Index) 30.3 kg/m2 09/18/2017 10:12am Height 66.25 inches 5'6.25" Weight 183.00 lb Heart Rate 76 /min BP Systolic Sitting 126 mmHg BP Diastolic Sitting 68 mmHg Respiratory Rate 16 /min Pain Level 0 BMI (Body Mass Index) 29.3 kg/m2 08/14/2017 10:14am Height 66.25 inches 5'6.25" Weight 183.00 lb Heart Rate 66 /min BP Systolic 124 mmHg BP Diastolic 86 mmHg Respiratory Rate 16 /min Pain Level 6 BMI (Body Mass Index) 29.3 kg/m2 07/17/2017 11:28am Height 66.25 inches 5'6.25" Weight 183.00 lb Heart Rate 76 /min BP Systolic Sitting 100 mmHg BP Diastolic Sitting 70 mmHg Respiratory Rate 12 /min no difficulties breathing Pain Level 7 BMI (Body Mass Index) 29.3 kg/m2 Procedures Date Code Description Status 04/01/2019 05320 Inject/Drain Joint/Bursa Major W/O US Completed 02/09/2018 33559 Open TX Distal Radial Intra-Articular FX W Fixation Of 3 Completed Or More 02/09/2018 92891 Open TX Distal Radial Intra-Articular FX W Fixation Of 3 Completed Or More 10/30/2017 22509 Arthroscopy,Knee,Meniscectomy Media & Lateral Completed 10/30/2017 47175 Arthroscopy,Knee,Meniscectomy Media & Lateral Completed 07/17/2017 98795 Xray Knee 3 Views Completed 07/17/201796275 Inject/Drain Joint/Bursa Major W/O US Completed Encounters Type Date Location Provider Dx Diagnosis Office Visit 04/01/2019 Orthopedic Gilson Coelho, M17.11 Unilateral primary 2:45p [facility] osteoarthritis, [place] right knee M17.12 Unilateral primary osteoarthritis, left knee Office Visit 02/07/2018 Orthopedic Sherry S52.572A Oth intartic 10:30a [facility] fracture of lower C.M.A. end of left radius, init Office Visit 10/24/2017 Orthopedic Feliciano Aguilera, S83.241D Oth tear of 11:00a [facility] medial meniscus, C.M.A. current injury, r knee, subs Office Visit 09/18/2017 Orthopedic Gilson Coelho, S83.241D Oth tear of 10:00a [facility], [place] current injury, r knee, subs Office Visit 08/14/2017 Orthopedic Gilson Coelho, M23.91 Unspecified 10:00a [facility] internal AT [place] derangement of right knee Office Visit 07/17/2017 Orthopedic Gilson Coelho, M17.11 Unilateral 11:00a [facility] primary AT [place] osteoarthritis, right knee M25.561 Pain in right knee Plan of Treatment Future Appointment(s):04/12/2019 2:30 pm - Messi Antoine MD at [facility] AT Ieflihzo70/05/2019 - Gilson Coelho, MDM17.11 Unilateral primary osteoarthritis, right kneeFollow up:Follow up: As pddmtaL80.12 Unilateral primary osteoarthritis, left knee
[2019-05-21 12:05] VITALS: BP 109/80
[2019-05-21] MEDS ORDERED: Albuterol/Ipratropium NEB.SOL* Albuterol 2.5 MG/Ipratropium 0.5 MG 3 ML INH ONE (12:10)
--- NOTE | 2019-05-21 12:14 | UC ---
Respiratory Complaint HPI - HPI Summary HPI Summary: 58-year-old smoker who has been sick with cold symptoms and cough over the past 3-4 days. She denies any fever or chills. She states no history of asthma however she does use an inhaler at home. - History of Current Complaint Chief Complaint: UCRespiratory Stated Complaint: COUGH Time Seen by Provider: 05/21/19 12:00 Hx Obtained From: Patient Hx Last Menstrual Period: 2012 ?: No Onset/Duration: Gradual Onset Timing: Intermittent Episodes Severity Initially: Mild Severity Currently: Moderate Pain Intensity: 6 Character: Cough: Productive - Productive cough of yellow sputum. Alleviating Factors: Bronchodilator - She's been using her inhaler however states it has not been helping. Associated Signs And Symptoms: Positive: Wheezing, URI, Nasal Congestion - Allergies/Home Medications Allergies/Adverse Reactions: Allergies Allergy/AdvReac Type Severity Reaction Status Date / Time gabapentin Allergy Difficulty Verified 05/21/19 11:58 Speaking, Memory Loss tramadol Allergy Difficulty Verified 05/21/19 11:58 Speaking, Memory Loss Home Medications: Home Medications Furosemide TAB* [Lasix TAB*] 40 mg PO DAILY 05/21/19 [History Confirmed 05/21/19 ] Potassium Chlor TAB* [Klor Con ER TAB*] 20 meq PO DAILY 05/21/19 [History Confirmed 05/21/19] PMH/Surg Hx/FS Hx/Imm Hx Previously Healthy: Yes - Surgical History Surgical History: Yes Surgery Procedure, Year, and Place: left leg fx with hardware 2009 [place]. right middle finger trigger release [place]. left thumb trigger finger release [place]. Right breast biopsy [place]. [place] [facility] [place]/plate & 8 screws. uterine ablation [place]. Left wrist plate/screws [facility] [place]-01/[place] - Family History Known Family History: Positive: Respiratory Disease - mom asthma - Social History Alcohol Use: Occasionally Alcohol Amount: couple Substance Use Type: None Substance Use Comment - Amount & Last Used: for psain mgmt-orasl and smoke Smoking Status (MU): Heavy Every Day Tobacco Smoker Type: Cigarettes Amount Used/How Often: 1 PPD Length of Time of Smoking/Using Tobacco: Since Age 17 Have You Smoked in the Last Year: Yes Household Exposure Type: Cigarettes - Immunization History Most Recent Influenza Vaccination: FALL 2015 Review of Systems All Other Systems Reviewed And Are Negative: Yes ENT: Positive: Nasal Discharge Respiratory: Positive: Cough - Occasional productive cough with yellow sputum. Is Patient Immunocompromised?: No Physical Exam Triage Information Reviewed: Yes Appearance: Well-Appearing, No Pain Distress, Well-Nourished Vital Signs: Initial Vital Signs Temp 98.9 F 05/21/19 11:55 Pulse 80 05/21/19 11:55 Resp 20 05/21/19 11:55 BP 109/80 05/21/19 11:55 Pulse Ox 97 05/21/19 11:55 Vital Signs Reviewed: Yes Eyes: Positive: Conjunctiva Clear ENT: Positive: Pharynx normal, Nasal congestion, TMs normal, Uvula midline Neck: Positive: Supple, Nontender, No Lymphadenopathy Respiratory: Positive: No respiratory distress, No accessory muscle use, Rhonchi , Wheezing Cardiovascular: Positive: RRR, No Murmur, Pulses Normal, Brisk Capillary Refill Musculoskeletal Exam: Normal Neurological Exam: Normal Psychological Exam: Normal Skin Exam: Normal Respiratory Course/Dx - Course Course Of Treatment: Chest x-ray:Indication: Cough, smoker. 2 views the chest including dual energy PA views demonstrates no mediastinal shift. Heart is of normal size and configuration. Lungs are clear. IMPRESSION: No active disease is noted. No significant change is noted since October 24, 2017. DuoNeb treatment: Patient felt much improved following the DuoNeb treatment. Her wheezing is minor at this point she is good air movement. I am going to put her on tapering prednisone and a Z-Fredy. Although there was an interaction warning with dexamethasone and Zofran and Zithromax, the patient is not on those medications. - Differential Dx/Diagnosis Provider Diagnosis: Bronchitis Discharge ED - Sign-Out/Discharge Documenting (check all that apply): Patient Departure All imaging exams completed and their final reports reviewed: Yes - Discharge Plan Condition: Fair Disposition: HOME Prescriptions: Azithromyxin FREDY (NF) [Z-Fredy (Zithromax) 250 mg tabs #6] 2 tab PO .TODAY, THEN 1 DAILY #6 tab predniSONE TAB* [Deltasone 10 MG TAB*] 10 mg PO DAILY 12 Days #30 tab Patient Education Materials: Acute Bronchitis (ED) Referrals: Xin Ridley MD [Primary Care Provider] - Additional Instructions: Increase fluids, take the prednisone with food. Definite follow-up with your primary care provider in 3 or 4 days if no improvement. Stop smoking. - Billing Disposition and Condition Condition: FAIR Disposition: Home
== END 2019-05-21 13:05 | disposition home or self-care (01) ==
LOC: UCCORT 11:12
DX: J45.909 Unspecified asthma, uncomplicated (principal); Z88.5 Allergy status to narcotic agent; Z88.8 Allergy status to other drugs, medicaments and biological substances; F17.210 Nicotine dependence, cigarettes, uncomplicated
CPT/HCPCS: 71046; 99212; A9270-GY; G0463

== ENCOUNTER 2024-06-13 06:31 | Observation (INO) ==
[~2024-06-13 06:31] MED LIST changes: -Buffered Lidocaine 0.9% SYRIN* 5 ML/SYR SYRINGE INTRADERM ONE; -Bupivacaine 0.5% SDV PF* 30ML VIAL ONE; -Dexamethasone IV* 4 MG/ML 1 ML (4 MG) IV SLOW PU ONE; +Metoclopramide 5 MG/ML VIAL (10 mg) IV PRN; +NS 0.45% 1000 ml BAG 1,000 ML IV SCH; +Naloxone 0.4 mg VIAL 0.4 mg/ml 1 ml VIAL IV PRN; +Ondansetron 4 mg VIAL 2 MG/ML 2 ml VIAL IV PRN; -Ondansetron INJ* 2 MG/ML VIAL IV ONE; -Sodium Citrate/Citric Acid* 15 ML UDC PO ONE
[2024-06-13] MEDS ORDERED: Tranexamic Acid 1 GM/100ML BAG 2,000 MG/200 ML BAG IV ONE (07:10)
[2024-06-13] MEDS ORDERED: Scopolamine 1 mg/72hr PATCH ONE (07:10)
[2024-06-13] MEDS ORDERED: ceFAZolin 2 GM PREMIX 2 GM/50 ML BAG ONE (07:10)
[2024-06-13] MEDS ORDERED: Midazolam 2 mg/2 ml VIAL 1 mg/ml 2 ml VIAL (2 mg) ONE ×2 (07:28→07:41)
[2024-06-13] MEDS ORDERED: Dexamethasone IV 4 MG/ML VIAL 1 ml VIAL ONE (07:28)
[2024-06-13] MEDS ORDERED: ROPIVACAINE 5 MG/ML 30 ML BTL (0.5%) ONE ×2 (07:29→08:36)
[2024-06-13 07:33] LABS: Rapid COVID-19 Molecular Undetected (Undetected)
[2024-06-13] MEDS ORDERED: fentaNYL 100 mcg/2 ml 50 MCG/ML VIAL ONE ×3 (07:41→12:21)
[2024-06-13] MEDS: Scopolamine 1 mg/72hr PATCH TRANSDERM ONE (07:42)
[2024-06-13] MEDS: Acetaminophen IV 1 GM/100ML 1,000 MG/100 ML BAG IV ONE (07:43)
[2024-06-13] MEDS: Buffered Lidocaine 1% SYRIN 1 ml INTRADERM ONE (07:43)
[2024-06-13] MEDS: Lactated Ringers 1000 ml BAG 1,000 ML IV SCH ×2 (07:43→14:40)
[2024-06-13] MEDS ORDERED: Rocuronium 50 mg VIAL 10 mg/ml 5 ml VIAL (50 mg) ONE ×2 (08:04→10:23)
[2024-06-13] MEDS ORDERED: HYDROmorphone 0.5 MG/0.5 ML SYRINGE ONE ×2 (09:24→09:45)
[2024-06-13] MEDS ORDERED: KETAMINE HCL 10 MG/ML 20 ml VIAL (200 MG) ONE (09:33)
[2024-06-13] MEDS ORDERED: Ondansetron 4 mg VIAL 2 MG/ML 2 ml VIAL IV PRN (11:21)
[2024-06-13] MEDS ORDERED: Morphine 2 MG/ML SYRINGE IV PRN (11:21)
[2024-06-13] MEDS ORDERED: Magnesium Hydroxide LIQ 30 ML UDC PO PRN (11:21)
[2024-06-13] MEDS ORDERED: Ondansetron ODT 4 mg TAB 4 MG TAB PO PRN (11:21)
[2024-06-13] MEDS ORDERED: Lactulose 30 ml UDC PO PRN (11:21)
[2024-06-13] MEDS ORDERED: Calcium Carb (TUMS) 500 mg CHEW TAB PO PRN (11:21)
[2024-06-13] MEDS: fentaNYL 100 mcg/2 ml 50 MCG/ML VIAL IV PRN (11:47)
[2024-06-13] MEDS ORDERED: Albuterol HFA INHALER 8 gm MDI INH PRN (11:55)
[2024-06-13] MEDS ORDERED: Fluticasone NASAL SPRAY 50MCG 16 gm SPRAY BTL INTRANASAL PRN (11:55)
[2024-06-13] MEDS ORDERED: HYDROmorphone 1 MG/1 ML SYRINGE ONE (12:38)
[2024-06-13] MEDS ORDERED: Acetaminophen IV 1 GM/100ML 1,000 MG/100 ML BAG IV ONE (12:38)
[2024-06-13] MEDS: HYDROmorphone 1 MG/1 ML SYRINGE IV ONE (12:52)
[2024-06-13] MEDS: [UNRECOGNIZED DRUG - REMARK] INH SCH (15:45)
[2024-06-13] MEDS: ceFAZolin 2 GM PREMIX 2 GM/50 ML BAG IV SCH (17:17)
[2024-06-13] MEDS: Magnesium Hydroxide LIQ 30 ML UDC PO SCH (21:46)
[2024-06-14 06:25] LABS: Hematocrit 35.5 % (35-45); Hemoglobin 11.7 g/dL (11.5-14.3); Mean Platelet Volume 9.1 fL (7.5-11.2); Platelet Count 259 10^3/uL (150-450)
[2024-06-14 07:31] LABS: Potassium 4.4 mmol/L (3.5-5.0); eGFR CKD-EPI 63.7 (>60)
[2024-06-14] MEDS: Vitamin THERAPEUTIC TAB PO SCH (09:42)
[2024-06-14] MEDS: DULoxetine DR 60 mg CAP PO SCH (09:45)
[2024-06-14] MEDS: Buprenorp/Nalox 8-2 MG FILM SL SCH (09:48)
[2024-06-14 11:29] VITALS: BP 135/87
== END 2024-06-14 13:15 | disposition home or self-care (01) ==
LOC: SSU 06:31 → OR 06:31
PROVIDERS: ADMIT Orthopaedic Surgery Adult Reconstructive Orthopaedic Surgery; ATTEND Orthopaedic Surgery Adult Reconstructive Orthopaedic Surgery